=== PATIENT | female | born 1940 | race Caucasian/White ===

== ENCOUNTER → 2016-10-02 | Outpatient (CLI) | payer OTHER, MEDICAID ==
--- NOTE | 2016-10-02 17:18 | DX ---
Bilateral hips, 3 views each side. October 02, 2016. History: Bilateral osteoarthritis of the hips. Findings: There is grade 4 articular cartilage loss within the left hip, with [id number] articulation. Latera l subluxation of the left femoral head is associated with bone resorption of the superior lateral asp ect of the left femoral head. The right hip demonstrates advanced central joint space narrowing, with subchondral cystic change wit hin the inferior medial aspect right femoral head. No pelvic fracture identified. Sacroiliac joints and symphysis pubis appear intact. Impression: 1. Advanced bilateral hip degenerative changes, left greater than right.
--- NOTE | 2016-10-02 17:20 | DX ---
Knee 3 Views Right, Knee 3 Views Left History: Knee pain. Osteoarthritis Comparison exam: None available. Findings: Right knee: Lateral joint space narrowing is associated with genu valgus. Medial compartment and sharp llofemoral compartments appear intact. Left knee: Medial joint space narrowing is associated with genu varus. Lateral compartment and patell ofemoral compartments appear intact. Impression: Bilateral knee osteoarthritis, preferential involvement of the lateral compartment of th e right knee and the medial compartment of the left knee.
== END ==
LOC: FIMAGING 16:20
PROVIDERS: ATTEND Family Medicine Sports Medicine
DX: M17.0 Bilateral primary osteoarthritis of knee (principal); M24.152 Other articular cartilage disorders, left hip; S73.002A Unspecified subluxation of left hip, initial encounter

== ENCOUNTER 2017-03-09 19:07 | Inpatient (IN) | payer OTHER, MEDICAID ==
--- NOTE | 2017-03-09 19:15 | EDPHY ---
H & P HPI/ROS: CHIEF COMPLAINT: Left knee and hip pain HISTORY OF PRESENT ILLNESS: The patient is a 76-year-old female with a history of schizophrenia, hypertension who lives alone. Her home health nurse found her today sitting up against her bed. She states that she fell next to her bed. She complains of pain in her left knee and hip. She denies head neck or back pain. No acute upper extremity injuries. No right leg injuries. No pelvic pain or abdominal pain. No chest pain or trouble breathing. She states that she did not faint but the she tripped. REVIEW OF SYSTEMS: Constitutional: denies: chills, fever, recent illness, recent injury EENTM: denies: blurred vision, double vision, nose congestion Respiratory: denies: cough, shortness of breath Cardiac: denies: chest pain, irregular heart rate, lightheadedness, palpitations Gastrointestinal/Abdominal: denies: abdominal pain, diarrhea, nausea, vomiting, blood streaked stools Genitourinary: denies: dysuria, frequency, hematuria, pain Musculoskeletal: See HPI Skin: denies: lesions, rash, jaundice, bruising Neurological: denies: headache, numbness, paresthesia, tingling, dizziness, weakness Hematologic/Lymphatic: denies: blood clots, easy bleeding, easy bruising Immunologic/allergic: denies: HIV/AIDS, transplant EXAM: GENERAL: Well-appearing, well-nourished and in no acute distress. HEAD: Atraumatic, normocephalic. EYES: Pupils equal round and reactive to light, extraocular movements intact, sclera anicteric, conjunctiva are normal. ENT: TMs normal, nares patent, oropharynx clear without exudates. Moist mucous membranes. NECK: Normal range of motion, supple without lymphadenopathy or JVD. LUNGS: Breath sounds clear to auscultation bilaterally and equal. No wheezes rales or rhonchi. HEART: Regular rate and rhythm without murmurs, rubs or gallops. ABDOMEN: Soft, nontender, normoactive bowel sounds. No guarding, no rebound. No masses appreciated. BACK: No CVA tenderness, no spinal tenderness, step-offs or deformities EXTREMITIES: Left leg bent, pain with extension of knee, mild crepitus just above the knee. No tenderness with palpation of her left hip. Pelvis stable. NEUROLOGICAL: Cranial nerves II through XII grossly intact. Normal speech, normal gait. 5/5 strength, normal movement in all extremities, normal sensation PSYCH: Normal mood, normal affect. SKIN: Warm, dry, normal turgor, no visible rashes or lesions. Source: Patient, EMS Exam Limitations: Clinical condition - Personal History Tetanus Vaccine Date: 2012 - Medical/Surgical History Hx Asthma: No Hx Chronic Respiratory Disease: No Hx Diabetes: No Hx Cardiac Disease: No Hx Renal Disease: No Hx Cirrhosis: No Hx Alcoholism: No Hx HIV/AIDS: No Hx Splenectomy or Spleen Trauma: No Other PMH: PMH: left hip problems (refuses sx), paranoid schizophrenia. PSH: hysterectomy, appy, ? - Family History Significant Family History: No pertinent family hx - Social History Smoking Status: Never smoked Alcohol Use: Sober Drug Use: None Constitutional: Initial Vital Signs Temperature (C) 36.6 C 03/09/17 19:14 Heart Rate 110 H 03/09/17 19:14 Respiratory Rate 14 03/09/17 19:14 Blood Pressure 154/78 H 03/09/17 19:14 O2 Sat (%) 96 03/09/17 19:14 O2 Delivery Mode Room Air Allergies/Adverse Reactions: lithium [Stewart] Allergy (Verified 03/09/17 19:14) Sulfa (Sulfonamide Antibiotics) Allergy (Verified 03/09/17 19:14) Home Medications: Medication Instructions Recorded Albuterol Sulfate [Ventolin Hfa] 1 - 2 puffs IH Q6H PRN 03/09/17 Aspirin [Aspirin 325 mg (*)] 325 mg PO DAILY 03/09/17 Cholecalciferol Vit D3 [Vitamin D3 5,000 units PO DAILY 03/09/17 (*)] Diclofenac Potassium 50 mg PO BID PRN 03/09/17 Docusate Sodium [Colace 100 MG (*)] 100 mg PO BID 03/09/17 Donepezil HCl [Aricept 5 MG (*)] 5 mg PO DAILY 03/09/17 Glycerin 1 each RC DAILY PRN 03/09/17 Hydrocortisone 2.5% 1 faby TP BID PRN 03/09/17 [Hydrocortisone 2.5% cream (*)] Lisinopril [Zestril 10 mg (*)] 10 mg PO DAILY 03/09/17 Multivitamins [Multivitamin (*)] 1 each PO DAILY 03/09/17 Oxybutynin Chloride [Ditropan 5mg 5 mg PO BID 03/09/17 (RX)] Polyethylene Glycol 3350 [Miralax 17 gm PO DAILY PRN 03/09/17 17 gm (*)] Risperidone 2 mg PO DAILY 03/09/17 guaiFENesin [Mucinex 600 MG (*)] 600 mg PO BID PRN 03/09/17 risperiDONE [Risperidone] 3 mg PO DAILY 03/09/17 Medical Decision Making - Diagnostics EKG Interpretation: An EKG obtained and was read and documented in trace view. Please see trace view for full reading and report. Sinus tachycardia, no acute ischemic changes Imaging: Discussed imaging studies w/ inbound call center agent Radiologist ED Course/Re-evaluation: 8:00 p.m. we discussed the x-ray results which are baseline for the patient compared to previous studies. I encouraged her to ambulate. She failed road test and would not even stand up out of bed. I discussed the case with Dr NATALY Harden who will admit. I will obtain CT imaging of her hip to rule out occult fracture. We will consult Dr. Oracio Fallon from Trauma to see if he needs to be involved. 8:05 p.m. I discussed the case with Dr. Oracio Fallon. He does not think that the trauma service needs to be involved. 8:20 p.m. the patient's white blood cell count came back elevated. Dr NATALY Harden is here in the room seeing her. We will add on lactate, blood cultures. Urinalysis pending. Patient has no shortness of breath. 8:50 p.m. . the patient qualifies as severe sepsis. Urinalysis still pending. 2nd lactate ordered, fluids running. Differential Diagnosis: Partial list of the Differential diagnosis considered include but were not limited to; arthritis, hip fracture, knee fracture, schizophrenia , failure to thrive and although unlikely based on the history and physical exam, I also considered dislocation, vascular injury, head injury, back injury. - Data Points Laboratory Results: Laboratory Results 03/09/17 19:41 03/09/17 19:41 Medications Given: Discontinued Medications Sodium Chloride (Ns) 1,800 mls @ 300 mls/hr 30 ml/kg infuse over 6 hr (1800 ml ) IV EDNOW ONE PRN Reason: Protocol Stop: 03/10/17 02:20 Last Admin: 03/09/17 21:04 Dose: 1,800 mls Ceftriaxone Sodium/Dextrose (Rocephin 1 Gm (Premix)) 50 mls @ 100 mls/hr IV EDNOW ONE PRN Reason: Protocol Stop: 03/09/17 21:33 Last Admin: 03/09/17 21:08 Dose: 50 mls Sodium Chloride (Ns) 1,000 mls @ 0 mls/hr IV ONCE ONE PRN Reason: Wide Open Stop: 03/09/17 22:06 Last Admin: 03/09/17 22:05 Dose: 1,000 mls Sodium Chloride (Ns) 1,000 mls @ 3,000 mls/hr IV ONCE ONE Stop: 03/09/17 22:26 Last Admin: 03/09/17 23:02 Dose: Not Given Sodium Chloride (Ns) 1,000 mls @ 3,000 mls/hr IV ONCE ONE Stop: 03/10/17 11:19 Last Admin: 03/10/17 11:21 Dose: 1,000 mls Departure - Departure Disposition: [facility] Acute Clinical Impression: Severe sepsis Hip pain Qualifiers: Laterality: left Qualified Code(s): M25.552 - Pain in left hip Fall Qualifiers: Encounter type: initial encounter Qualified Code(s): W19.XXXA - Unspecified fall, initial encounter Condition: Fair
[2017-03-09 19:50] LABS: % IMMATURE GRANULYOCYTES 0.6 % (0.0-1.1); ABSOLUTE IMMATURE GRANULOCYTES 0.12 10^3/uL (0.00-0.10); ADD DIFF? NO; ADD MORPH? NO; ADD SCAN? NO; ATYPICAL LYMPHOCYTE FLAG 0 (0-99); FRAGMENT RBC FLAG 0 (0-99); HEMATOCRIT 34.1 % (38.0-47.0); HEMOGLOBIN 11.8 g/dL (12.6-16.3); LEFT SHIFT FLG 10 (0-99); LIPEMIA HEMOLYSIS FLAG 90 (0-99); MEAN CELL HEMOGLOBIN 30.6 pg (27.9-34.1); MEAN CELL HEMOGLOBIN CONCENTR. 34.6 g/dL (32.4-36.7); MEAN CELL VOLUME 88.6 fL (81.5-99.8); MEAN PLATELET VOLUME 9.5 fL (8.7-11.7); PLATELET CLUMPS FLAG 0 (0-99); PLATELET COUNT 269 10^3/uL (150-400); RED BLOOD CELL COUNT 3.85 10^6/uL (4.18-5.33); RED CELL DISTRIBUTION WIDTH 12.1 % (11.5-15.2)
[2017-03-09] MEDS ORDERED: ONDANSETRON DISINTEGRATING 4 MG TAB PO PRN (19:59)
[2017-03-09] MEDS ORDERED: ACETAMINOPHEN 325 MG TAB PO PRN (19:59)
[2017-03-09] MEDS ORDERED: ONDANSETRON 4 MG/2 ML VIAL IVP PRN (19:59)
[2017-03-09 20:00] LABS: APTT 28.5 SEC (23.0-38.0); INR 1.06 (0.83-1.16); PROTIME(PATIENT) 13.7 SEC (12.0-15.0)
[2017-03-09] MEDS ORDERED: NS 1,000 ML IV ONE ×3 (20:04→22:07)
[2017-03-09 20:07] LABS: ANION GAP 10 mEq/L (8-16); CALCIUM 9.7 mg/dL (8.5-10.4); CARBON DIOXIDE 20 mEq/l (22-31); CHLORIDE 101 mEq/L (97-110); CREATININE 0.6 mg/dL (0.6-1.0); GLOMERULAR FILTRATION RATE > 60; GLUCOSE 151 mg/dL (70-100); POTASSIUM 3.9 mEq/L (3.5-5.2); SODIUM 131 mEq/L (134-144)
[2017-03-09] MEDS ORDERED: NS 1,800 ML IV ONE (20:21)
[2017-03-09] MEDS ORDERED: POLYETHYLENE GLYCOL 3350 17 GM PKT PO PRN (20:37)
--- NOTE | 2017-03-09 20:52 | CPEKG ---
Heart Rate: 109 RR Interval: 550 P-R Interval: 160 QRSD Interval: 80 QT Interval: 324 QTC Interval: 437 P [place]: 68 QRS [place]: 59 T Wave [place]: 34 EKG Severity - BORDERLINE ECG - EKG Impression: SINUS TACHYCARDIA EKG Impression: BORDERLINE INFERIOR Q WAVES EKG Impression: BORDERLINE T WAVE ABNORMALITIES Electronically Signed By: James Hsieh 09-Mar-2017 20:57:40
[2017-03-09 20:53] LABS: BILIRUBIN,TOTAL 0.9 mg/dL (0.1-1.4)
[2017-03-09 20:57] LABS: COLOR YELLOW; LEUKOCYTE ESTERASE,URINE 2+ (NEGATIVE); NITRITE,URINE NEGATIVE (NEGATIVE)
[2017-03-09 21:01] LABS: BACTERIA 4+ /hpf (NONE SEEN); MUCUS TRACE /lpf (NONE-1+); WBC,URINE 15-25 /hpf (0-3)
--- NOTE | 2017-03-09 21:05 | GHP ---
[f rep st] HISTORY AND PHYSICAL DATE OF ADMISSION: 03/09/2017 CHIEF COMPLAINT: Fall. HISTORY OF PRESENT ILLNESS: This is a 76-year-old female, with a history of severe schizophrenia re quiring inpatient psychiatric hospitalization in December of 2015, who presents from independent living with caregiver support and Meals on Wheels. Caregiver apparently showed up at the home today and t he patient was sitting against her bed reporting that she had a fall. The patient cannot give speci fic details about the circumstances of the fall, but that she is having terrible left-sided hip and knee pain. The patient was unable to stand and ambulate independently, therefore was brought into [facility] emergency department for evaluation. In the ED, she reports that she gets Meals on Wheels and does eat them. Cannot specifically say jhonathan t she makes an effort toward fluid hydration. Denies any chest pain or shortness of breath. Denies cough. Denies recent fevers or chills. Does report that she has been having urinary accidents rec ently. Denies any blood in her stool or urine. Is having terrible pain of her left lower extremity . None on her right, per her report. Denies having any difficulties at home specifically. Denies any dizziness, heart racing or chest pain. PAST MEDICAL HISTORY: 1. Schizophrenia. 2. Hypertension. 3. History of laxative abuse. 4. 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 SOCIAL HISTORY: The patient is currently living independently with care provider support. Denies a lcohol, illicit drugs or tobacco. She has a brother and a [id number] who are support systems for her. CODE STATUS: Full code. REVIEW OF SYSTEMS: A 10-point review of systems is negative with the exception of that reported in the HPI. PHYSICAL EXAMINATION: VITAL SIGNS: Blood pressure is 154/78, heart rate in 130s, respiratory rate is 14, and 96% on room air, temperature is 36.6. GENERAL: This is a disheveled-appearing elderly f emale in mild distress. HEENT: Notable for dry mucous membranes and poor dentition. Eye exam is n egative for any icterus. CARDIAC: The patient is tachycardic but regular. PULMONARY: She is eric r to auscultation bilaterally. GASTROINTESTINAL: Abdomen is soft and nontender. MUSCULOSKELETAL: The patient has marked pain on palpation of her left hip as well as her left knee. No lower extrem ity edema is appreciated. SKIN: No rashes are noted. NEUROLOGIC: She is alert and oriented x3. She is distractible. PSYCHIATRIC: She is cooperative. LABORATORY DATA: White count 19.7, baselines appear normal between 7 and 9, hematocrit 34.1, below her recent baselines, platelet count 269. Sodium 131, creatinine 0.6, blood glucose 151. Hip and k nee x-rays, which I personally reviewed and interpreted, on the left do not show acute fractures. ASSESSMENT AND PLAN: This is a 76-year-old female presenting status post fall. 1. Fall. The mechanics are unclear. Hip and knee films are negative for acute fractures; however, the patient does have marked pain. I agree with CT imaging to rule out hairline fractures. We william l need PT/OT for safety evaluations for disposition. Can treat with pain medications p.r.n. 2. Tachycardia. The patient appears to be regular on my auscultation. I will order an EKG. Revie wing her previous vital signs, this is very abnormal for her. I suspect it is pain and volume relat ed. We will resuscitate with normal saline, check an EKG and treat her pain, following her heart ra te thereafter. 3. Acute leukocytosis. The patient has a white count of 19. Source is unclear at this time; althace leon, with a history of urinary accidents, suspect this may be secondary to a UTI. We will order uri nalysis and urine culture now. 4. Sepsis. The patient has leukocytosis and tachycardia. Presumed source likely urinary. Again, we will check urinalysis and urine culture, and empirically treat with ceftriaxone IV. Looking at o ld cultures, patient has grown most recently Proteus that appears to be multi-drug resistant. We wi ll await urinalysis before deciding upon empiric antibiotics as ceftriaxone may not be appropriate i f we are seeing this Proteus again. 5. Hyponatremia. I suspect secondary to hypovolemia. The patient has a history of laxative abuse. We will fluid resuscitate and recheck in the morning. 6. Schizophrenia. Can continue her home medications once reconciled. 7. Prophylaxis with Lovenox. 8. Diet. Regular. 9. Disposition. I expect greater than 2 midnights as the patient is presenting septic, status post fall, will need therapy evaluations and aggressive medical care for a sepsis diagnosis on admission . I discussed the case with the emergency room physician. The patient will be triaged to the medic al-surgical floor for IV antibiotics and care. /[id number]/MODL
[2017-03-09 22:48] LABS: LACGHOST ORDER
[2017-03-09] MEDS: ERTAPENEM 1 GM in NS 100 ML IV SCH (23:02)
[2017-03-09] MEDS: DOCUSATE SODIUM 100 MG CAP PO SCH (23:31)
[2017-03-10] MEDS: OXYBUTYNIN CHLORIDE 5 MG TAB PO SCH ×3 (01:18→19:05)
[2017-03-10 06:14] LABS: ANION GAP 7 mEq/L (8-16); CALCIUM 7.9 mg/dL (8.5-10.4); CARBON DIOXIDE 20 mEq/l (22-31); CHLORIDE 112 mEq/L (97-110); CREATININE 0.5 mg/dL (0.6-1.0); GLOMERULAR FILTRATION RATE > 60; GLUCOSE 92 mg/dL (70-100); POTASSIUM 3.5 mEq/L (3.5-5.2); SODIUM 139 mEq/L (134-144)
[2017-03-10] MEDS: ASPIRIN 325 MG TAB PO SCH (08:10)
[2017-03-10] MEDS: CHOLECALCIFEROL VIT D3 1,000 UNITS TAB PO SCH (08:10)
[2017-03-10] MEDS: DONEPEZIL HCL 5 MG TAB PO SCH (08:10)
[2017-03-10] MEDS: DOCUSATE SODIUM 100 MG CAP PO SCH ×2 (08:10→19:05)
[2017-03-10] MEDS: ENOXAPARIN 40 MG/0.4 ML SYR SC SCH (08:10)
[2017-03-10] MEDS: risperiDONE 1 MG TAB PO SCH (08:11)
[2017-03-10] MEDS: risperiDONE 2 MG TAB PO SCH (08:13)
[2017-03-10] MEDS ORDERED: RISPERIDONE 3 MG PO SCH (09:00)
[2017-03-10 09:25] LABS: % IMMATURE GRANULYOCYTES 0.7 % (0.0-1.1); ABSOLUTE IMMATURE GRANULOCYTES 0.06 10^3/uL (0.00-0.10); ADD DIFF? NO; ADD MORPH? NO; ADD SCAN? NO; ATYPICAL LYMPHOCYTE FLAG 0 (0-99); FRAGMENT RBC FLAG 0 (0-99); HEMATOCRIT 26.3 % (38.0-47.0); LEFT SHIFT FLG 0 (0-99); LIPEMIA HEMOLYSIS FLAG 90 (0-99); MEAN CELL HEMOGLOBIN 30.5 pg (27.9-34.1); MEAN CELL HEMOGLOBIN CONCENTR. 34.2 g/dL (32.4-36.7); MEAN CELL VOLUME 89.2 fL (81.5-99.8); MEAN PLATELET VOLUME 9.6 fL (8.7-11.7); PLATELET CLUMPS FLAG 0 (0-99); PLATELET COUNT 189 10^3/uL (150-400); RED BLOOD CELL COUNT 2.95 10^6/uL (4.18-5.33); RED CELL DISTRIBUTION WIDTH 12.5 % (11.5-15.2)
[2017-03-10] MEDS ORDERED: NS 1,000 ML IV ONE (11:00)
--- NOTE | 2017-03-10 14:11 | HOSPPROG ---
Hospitalist Progress Note Assessment/Plan: # sepsis- tachycardia and leukocytosis at presentation presumed secondary to urinary source - blood and urine cultures NGTD oxygen saturations 94% on room air - continue empiric antibiotics - status post aggressive fluid resuscitation continue maintenance of p.o. is inadequate # suspected UTI- abnormal urinalysis urine culture pending- history of multi- drug resistant Proteus - continue empiric ertapenem until cultures available # severe schizophrenia- we do believe this is impacting her ability for self- care at home - will need to re-engage ethics and Psychiatry for disposition planning - continue home meds # severe left lower extremity pain- mechanics of fall if any are unknown - hip xray (personally reviewed and interpreted) advanced hip degenerative changes no acute fractures - pt refusing pain medications # acute hyponatremia thought secondary to hypovolemia- resolved overnight with fluid resuscitation- 139 - continue IVF if no p.o. intake # acute leukocytosis white count 19 improved -> 8 this morning with empiric antibiotics and supportive care # prophylaxis Lovenox # diet regular # disposition greater than 2 midnights patient will be a complicated disposition secondary to safety as it pertains to her psychiatric illness I have discussed the case with the ICU physician will complete fluid resuscitation and continue empiric antibiotics Subjective: still with left hip and knee pain Objective: Vital Signs Temp Pulse Resp BP Pulse Ox 37.5 C 113 H 17 170/67 H 93 03/10/17 07:29 03/10/17 07:29 03/10/17 07:29 03/10/17 07:29 03/10/17 07:29 Laboratory Results 03/10/17 09:15 03/10/17 05:10 03/09/17 03/10/17 03/11/17 05:59 05:59 05:59 Intake Total 3100 1000 Output Total 1700 Balance 1400 1000 PT 13.7 SEC (12.0-15.0) 03/09/17 19:41 INR 1.06 (0.83-1.16) 03/09/17 19:41 - Physical Exam Constitutional: appears nourished, chronically ill appearing Eyes: anicteric sclera Ears, Nose, Mouth, Throat: moist mucous membranes Cardiovascular: regular rate and rhythym Respiratory: no respiratory distress, no rales or rhonchi Gastrointestinal: normoactive bowel sounds, soft, non-tender abdomen Genitourinary: no bladder fullness Skin: warm, normal color Musculoskeletal: No asymmetric calves Neurologic: AAOx3 Psychiatric: interacting appropriately, not anxious Lymph, Heme, Immunologic: no cervical LAD ICD10 Worksheet Patient Problems: Problems Problem Status Onset Fall Acute Hip pain Acute Severe sepsis Acute Acute psychosis Acute Diarrhea Acute
[2017-03-10] MEDS: HYDROCODONE/APAP 5/325 TAB PO PRN (19:04)
[2017-03-10] MEDS: ERTAPENEM 1 GM in NS 100 ML IV SCH (19:05)
[2017-03-11] MEDS: HYDROCODONE/APAP 5/325 TAB PO PRN ×3 (02:49→21:11)
[2017-03-11 03:17] LABS: HEMATOCRIT 24.3 % (38.0-47.0); HEMOGLOBIN 8.3 g/dL (12.6-16.3); MEAN CELL HEMOGLOBIN 30.9 pg (27.9-34.1); MEAN CELL HEMOGLOBIN CONCENTR. 34.2 g/dL (32.4-36.7); MEAN CELL VOLUME 90.3 fL (81.5-99.8); RED BLOOD CELL COUNT 2.69 10^6/uL (4.18-5.33); RED CELL DISTRIBUTION WIDTH 12.5 % (11.5-15.2)
[2017-03-11 03:43] LABS: ANION GAP 6 mEq/L (8-16); CALCIUM 8.8 mg/dL (8.5-10.4); CARBON DIOXIDE 23 mEq/l (22-31); CHLORIDE 110 mEq/L (97-110); CREATININE 0.6 mg/dL (0.6-1.0); GLOMERULAR FILTRATION RATE > 60; GLUCOSE 86 mg/dL (70-100); POTASSIUM 3.7 mEq/L (3.5-5.2); SODIUM 139 mEq/L (134-144)
[2017-03-11] MEDS: LISINOPRIL 10 MG TAB PO SCH (07:53)
[2017-03-11] MEDS: ENOXAPARIN 40 MG/0.4 ML SYR SC SCH (07:53)
[2017-03-11] MEDS: ASPIRIN 325 MG TAB PO SCH (07:55)
[2017-03-11] MEDS: risperiDONE 2 MG TAB PO SCH (07:55)
[2017-03-11] MEDS: DONEPEZIL HCL 5 MG TAB PO SCH (07:55)
[2017-03-11] MEDS: CHOLECALCIFEROL VIT D3 1,000 UNITS TAB PO SCH (07:55)
[2017-03-11] MEDS: OXYBUTYNIN CHLORIDE 5 MG TAB PO SCH ×2 (07:55→21:11)
[2017-03-11] MEDS: risperiDONE 1 MG TAB PO SCH (07:56)
[2017-03-11] MEDS: DOCUSATE SODIUM 100 MG CAP PO SCH ×2 (07:56→21:11)
--- NOTE | 2017-03-11 13:20 | WOCRNPDOC ---
WOCRN Advanced Assessment Note - Skin Integrity Problem, Advanced Assess Left Lower Leg Blister Dressing Type: Open to Air Exudate Amount: None Roxana Wound Tissue: Erythema (scattered erythematic flat rash), Contused, Painful /Tender Wound Bed Constitution: Intact Serous Filled Blister (x4) Site Measurement - Head-to-Toe Length X Width X Depth (cm): [id number] blister, and a few others grouped nearby approx 3x1 and 1x1 are the largest. Skin Integrity Problem Comment: Patient unable to move leg due to severe pain and swelling. atomic fuel assembler unable to assess fully as the patient's leg was resting on the bed and the lateral portion of the lower leg could not be seen. Discussed the need for repositioning with patient and the consequences including the possible development of a pressure injury/bedsore. Patient verbalized understanding but appeard to be in too much agony to move at all. Xray of lower leg pending. Suggested placing leg in a boot in the interim to help stablize it but patient declined. Recommend covering area with mepilex transfer sheet to protect blisters.
[2017-03-11] MEDS ORDERED: HYDROmorphONE/DILAUDID 1 MG/ML SYR IVP PRN (13:33)
--- NOTE | 2017-03-11 13:49 | HOSPPROG ---
Hospitalist Progress Note Assessment/Plan: # Acute tib/fib fracture - pt with persistent leg pain now localizing below the knee - new bruising and blistering this am mechanics of fall if any are unknown - Tib/fib xray (personally reviewed and interpreted) displaced fracture of tibia and fibular fx - will consult ortho - encouraging IV pain meds - make NPO until ortho has evaluated # sepsis- (tachycardia and leukocytosis at presentation) presumed secondary to urinary source - blood and urine cultures NGTD oxygen saturations 94% on room air - continue empiric antibiotics - status post aggressive fluid resuscitation continue maintenance of p.o. is inadequate # suspected UTI- abnormal urinalysis urine culture pending- history of multi- drug resistant Proteus - continue empiric ertapenem until cultures available # severe schizophrenia- we do believe this is impacting her ability for self- care at home - consulting Psychiatry - continue home meds # acute hyponatremia thought secondary to hypovolemia- resolved overnight with fluid resuscitation- remains 139 - continue IVF while NPO # acute leukocytosis white count 19 improved -> 7 this morning with empiric antibiotics and supportive care # prophylaxis Lovenox # diet regular # disposition greater than 2 midnights patient will be a complicated disposition secondary to safety as it pertains to her psychiatric illness I have discussed the case with the RN - films confirming a tib/fib fracture - will consult ortho Subjective: pain in left leg Objective: Vital Signs Temp Pulse Resp BP Pulse Ox 36.9 C 84 16 155/54 H 98 03/11/17 08:00 03/11/17 08:00 03/11/17 08:00 03/11/17 08:00 03/11/17 08:00 Laboratory Results 03/11/17 03:00 03/11/17 03:00 03/10/17 03/11/17 03/12/17 05:59 05:59 05:59 Intake Total 3100 3128 Output Total 1700 4100 1800 Balance 1400 -972 -1800 PT 13.7 SEC (12.0-15.0) 03/09/17 19:41 INR 1.06 (0.83-1.16) 03/09/17 19:41 - Physical Exam Constitutional: chronically ill appearing Eyes: anicteric sclera Ears, Nose, Mouth, Throat: moist mucous membranes Cardiovascular: regular rate and rhythym, tachycardia Respiratory: no respiratory distress, no rales or rhonchi Gastrointestinal: normoactive bowel sounds, soft, non-tender abdomen Genitourinary: no bladder fullness, morocho in urethra Skin: warm, other (bruising at mid michaud of left lower extremity with new blistering) Musculoskeletal: asymmetric calves Neurologic: AAOx3 Psychiatric: poor insight ICD10 Worksheet Patient Problems: Problems Problem Status Onset Fall Acute Hip pain Acute Severe sepsis Acute Acute psychosis Acute Diarrhea Acute
--- NOTE | 2017-03-11 14:36 | SOAPPROG ---
PRADEEP Progress Note Assessment/Plan: Assessment: left tib fib fracture Plan: i have reviewed xrays. i would recommend IM nail of tib/fib. d/w florecita toro and will plan on IM nail tomorrow. I will discuss with patient. She has advanced arthritis with end stage remodeling to her left hip which is chronic. I would not recommend any intervention for her hip. 03/11/17 14:34 Objective: Vital Signs Temp Pulse Resp BP Pulse Ox 36.9 C 84 16 155/54 H 98 03/11/17 08:00 03/11/17 08:00 03/11/17 08:00 03/11/17 08:00 03/11/17 08:00 Laboratory Results 03/11/17 03:00 03/11/17 03:00 03/10/17 03/11/17 03/12/17 05:59 05:59 05:59 Intake Total 3100 3128 Output Total 1700 4100 1800 Balance 1400 -972 -1800 PT 13.7 SEC (12.0-15.0) 03/09/17 19:41 INR 1.06 (0.83-1.16) 03/09/17 19:41 ICD10 Worksheet Patient Problems: Problems Problem Status Onset Fall Acute Hip pain Acute Severe sepsis Acute Acute psychosis Acute Diarrhea Acute
--- NOTE | 2017-03-11 18:36 | BCON ---
[f rep st] BEHAVIORAL HEALTH CONSULTATION PATIENT IDENTIFICATION: The patient presents as a 76-year-old single white female, who lives in her own apartment and functions stably in independent living with outreach caregiver support and Meals on Wheels. The patient has a remote diagnosis of Schizophrenic Disorder and is followed on maintenance medication including Risperdal 5 mg daily. Her psychiatric prescriber apparently makes regularly scheduled outreach home visits. She was admitted via the [facility] Emergency Room to the ICU following a mechanical fall and identification of sepsis and suspected UTI in the emergency room. CONSULTATIVE REQUEST: Psychiatry was asked to assess the patient to stage her mental status and assess dispositional needs. HISTORY OF PRESENT ILLNESS: The patient has a remote diagnosis of Schizophrenic Disorder. Her chronic symptom and treatment history details are unclear from the database. The patient does acknowledge she has had multiple hospitalizations in the past, and is followed currently as a psychiatric outpatient. She does remember her last inpatient hospitalization occurred last year. Database states this was in December 2015. The patient's verbal history is somewhat imprecise, but she does report being hospitalized briefly at [facility] in [place] before being transferred to [place] and the [facility] inpatient psychiatric service where she stayed for a period of 5 days. Her intake suggests that she was discharged but hospitalized again x2 for 5- day periods before discharging home and remaining home in stable condition. She states she has not been hospitalized since that time, does comply with her maintenance Risperdal regimen and outreach appointments with her psychiatric prescriber, who does come to her home. She states she was in her usual state of wellness until suffering a mechanical fall on the day of or day before, being found by her home health nurse on the floor of her apartment. She was brought by EMS to the emergency room. On direct exam she complained of left lower extremity, left knee, and hip pain. Emergency room workup included a left hip x-ray, left knee x-ray, and CT of her abdomen and pelvis. All imaging studies were negative for any acute problems. Patient did have evidence of advanced left hip osteoarthritis. Further lab screens revealed diminished hemoglobin and hematocrit at 8.3 and 24.3, diminished platelets at 166, WBC AT 19,hyponatremia at 131, and a decreased anion gap of 6. A urinalysis revealed pyuria. Urine culture and blood cultures x2 were obtained; currently show no infection. Patient was sent on for admission to the ICU for presumed sepsis, probable urinary tract infection, hyponatremia, and persistent acute pain complaints. HOSPITAL COURSE: Since admission to the ICU, the patient's elevated white count has corrected from 19 to 7 on antibiotic coverage. The persistent pain eventuated in an x-ray of her tibia and fibula which revealed an acute fracture. Patient was seen in consultation by Orthopedics today and planned tomorrow for fracture repair by nailing intervention. The patient also had developed a left lower extremity blister, which was seen today by Wound Care. Patient was unable to move secondary to pain and swelling. Patient understood the risk of pressure injury, or bedsore. It was suggested patient's leg be placed in a protective boot but the patient declined. She did recommend covering the blister area with Mepilex transfer sheet. The patient has complied with medications and care, including continuing on her regimen of Risperdal 5 mg daily. MENTAL STATUS EXAMINATION: On direct exam, the patient presents as an elderly white female, who is alert and oriented x4. Patient is cooperative and conversant, interacting in the session. Her thought process is concrete, psychosis free, reality focused. Patient accurately explains the reason for being in the hospital and understands the corrective surgery surgical procedure plan for the a.m. tomorrow. She also conveyed her psychiatric history in an articulate manner as referenced above. She does understand the Risperdal is a necessary medication for her to maintain mindful stability. She understands her need for step-down from the hospital for A rehabilitation stay in a [place] [facility] [place] prior to returning home. She understands this in terms of needing to regain functional mobility, strength, and capacity to manage independently enough to return to her apartment, and the supportive care services she had been receiving prior to the fall. IMPRESSION: Patient presents as a 76-year-old white female with remote diagnosis of schizophrenic disorder. Her schizophrenia appears to be in a compensated state with patient presenting with no evidence for psychosis and full reality testing capacity. She also understands the nature of the problems in the hospital and the corrective interventions. She also understands the need for a step-down [place] [facility] [place] rehabilitation stay to advance her recovery to a level allowing her to return home. RECOMMENDATIONS: Would simply continue the patient on her maintenance Risperdal at 5 mg daily and continue to provide verbal support, clarification, and direction for her in completing the acute hospital stay through her surgical correction and sufficient recovery to step-down to a [place] [facility] [place] rehabilitation program for sufficient functional recovery to then allow her to return home to her apartment. She clearly values the apartment setting as a base for her to continue her community life. Thank you for the interesting consultation. Any questions, please call me at [phone]. /[id number]/MODL MTDD
[2017-03-11] MEDS: ERTAPENEM 1 GM in NS 100 ML IV SCH (21:13)
--- NOTE | 2017-03-12 04:06 | GCON ---
[f rep st] CONSULTATION INPATIENT CONSULTATION CHIEF COMPLAINT: Fall and leg pain. HISTORY OF PRESENT ILLNESS: Patient is a 76-year-old woman with severe schizophrenia who presented to the emergency department after being found next to the edge of her bed and reporting that she had a fall. She was unable to ambulate. Was having terrible left-sided hip and knee pain. She presen abel to the emergency department. Evaluation at that time with x-rays of her hip revealed severe art hritis which is chronic, as well as right knee arthritis with no acute fracture identified. She was also diagnosed with urosepsis and admitted to the ICU for further evaluation. She has had persiste nt pain across her left lower extremity, inability to ambulate. X-rays of her tibia and fibula were obtained demonstrating a mid shaft 50% displaced and mildly angulated tibia and fibular fracture. She has severe osteoporosis as well. Medically she has resolved her urosepsis and normalized her la boratory values. PAST MEDICAL HISTORY: Consistent with schizophrenia, hypertension, and hyponatremia. PAST SURGICAL HISTORY: See chart. MEDICATIONS: See chart. REVIEW OF SYSTEMS: Noncontributory. She denies everything currently. She denies lower extremity p ain. PHYSICAL EXAMINATION: Objectively this is a healthy elderly woman who is eating and pleasant. Focu sed examination of her left lower extremity reveals no splint. She has large swelling across her lo wer extremity diffusely. Dopplerable pulses to her dorsalis pedis. There are fracture blisters to the mid tibia with ecchymosis surrounding this area. She denies any focal calf pain from the ankle to the knee. There is no focal knee tenderness. She has mild discomfort only with flexion through the fracture site in the mid tibia. IMAGING: X-rays demonstrate a mid shaft tib-fib fracture with 50% displacement and mild angulation. There is diffuse severe osteoporosis by x-ray examination. IMPRESSION: Left tib-fib fracture. TREATMENT PLAN: For stability and mobilization I recommended surgical stabilization with intramedul kirill implant. I have outlined the surgical procedure at length. I am unclear at her comprehension level but she voices her consent to proceed. We will proceed with operative intervention tomorrow e bo. /[id number]/MODL
[2017-03-12 05:47] LABS: HEMATOCRIT 24.7 % (38.0-47.0); HEMOGLOBIN 8.2 g/dL (12.6-16.3); MEAN CELL HEMOGLOBIN 30.3 pg (27.9-34.1); MEAN CELL HEMOGLOBIN CONCENTR. 33.2 g/dL (32.4-36.7); MEAN CELL VOLUME 91.1 fL (81.5-99.8); RED BLOOD CELL COUNT 2.71 10^6/uL (4.18-5.33); RED CELL DISTRIBUTION WIDTH 12.3 % (11.5-15.2)
[2017-03-12] MEDS: risperiDONE 1 MG TAB PO SCH (09:53)
[2017-03-12] MEDS: DONEPEZIL HCL 5 MG TAB PO SCH (09:53)
[2017-03-12] MEDS: CHOLECALCIFEROL VIT D3 1,000 UNITS TAB PO SCH (09:53)
[2017-03-12] MEDS: ASPIRIN 325 MG TAB PO SCH (09:53)
[2017-03-12] MEDS: LISINOPRIL 10 MG TAB PO SCH (09:54)
[2017-03-12] MEDS: DOCUSATE SODIUM 100 MG CAP PO SCH ×2 (09:54→22:31)
[2017-03-12] MEDS: OXYBUTYNIN CHLORIDE 5 MG TAB PO SCH ×3 (09:54→23:43)
[2017-03-12] MEDS: risperiDONE 2 MG TAB PO SCH (09:54)
--- NOTE | 2017-03-12 14:02 | HOSPPROG ---
Hospitalist Progress Note Assessment/Plan: # Acute tib/fib fracture - pt with persistent leg pain now localizing below the knee - new bruising and blistering this am mechanics of fall if any are unknown - Tib/fib xray (personally reviewed and interpreted) displaced fracture of tibia and fibular fx - orthopedics taking for IM nailing today - encouraging IV pain meds - NPO for OR # sepsis- (tachycardia and leukocytosis at presentation) resolved - blood and urine cultures NGTD oxygen saturations 94% on room air - dc empiric antibiotics # suspected UTI- abnormal urinalysis urine culture pending- history of multi- drug resistant Proteus - completed 4 day course of Abx - cultures negative with stop as have treated uncomplicated cystitis # severe schizophrenia- we do believe this is impacting her ability for self- care at home - thank you to Psychiatry for medication and discharge recommendations - continue home risperidone at current dosing # acute hyponatremia thought secondary to hypovolemia- resolved with fluid resuscitation- remains 139 - continue IVF while NPO # acute leukocytosis white count 19 improved -> 7 with empiric antibiotics and supportive care # prophylaxis Lovenox # diet regular # disposition greater than 2 midnights patient will be a complicated disposition secondary to safety as it pertains to her psychiatric illness I have discussed the case with the RN - encouraging pain meds prn patient to OR today Subjective: nervous for OR Objective: Vital Signs Temp Pulse Resp BP Pulse Ox 37.0 C 74 16 143/49 H 100 03/12/17 08:00 03/12/17 08:00 03/12/17 08:00 03/12/17 08:00 03/12/17 08:00 Microbiology 03/10/17 09:15 Urine Culture - Final Urine,Catheterized Laboratory Results 03/12/17 05:37 03/11/17 03:00 03/11/17 03/12/17 03/13/17 05:59 05:59 05:59 Intake Total 3128 Output Total 4100 2675 Balance -972 -2675 PT 13.7 SEC (12.0-15.0) 03/09/17 19:41 INR 1.06 (0.83-1.16) 03/09/17 19:41 - Physical Exam Constitutional: chronically ill appearing Eyes: anicteric sclera Ears, Nose, Mouth, Throat: moist mucous membranes Cardiovascular: regular rate and rhythym Respiratory: no respiratory distress, no rales or rhonchi Gastrointestinal: normoactive bowel sounds Genitourinary: no bladder fullness Skin: other (bruise of left LE extending with persistent blistering of skin ) Musculoskeletal: asymmetric calves Neurologic: AAOx3 Psychiatric: No agitated Lymph, Heme, Immunologic: no cervical LAD ICD10 Worksheet Patient Problems: Problems Problem Status Onset Fall Acute Hip pain Acute Severe sepsis Acute Acute psychosis Acute Diarrhea Acute
[2017-03-12] MEDS ORDERED: LR 1,000 ML IV ONE (15:16)
[2017-03-12] MEDS ORDERED: ceFAZolin 2 GM/DEXTROSE 100 ML IV ONE (16:00)
[2017-03-12] MEDS ORDERED: MIDAZOLAM 2 MG/2 ML VIAL IVP ONE (16:03)
[2017-03-12] MEDS ORDERED: MIDAZOLAM 2 MG/2 ML VIAL ONE (16:03)
--- NOTE | 2017-03-12 16:03 | PDANEPAE ---
ANE History of Present Illness left tibial nail ANE Past Medical History - Cardiovascular History Hx Hypertension: No Hx Arrhythmias: No Hx Chest Pain: Yes Hx Coronary Artery / Peripheral Vascular Disease: No Hx CHF / Valvular Disease: No Hx Palpitations: No Cardiovascular History Comment: probable non cardogenic chest pain - Pulmonary History Hx COPD: No Hx Asthma/Reactive Airway Disease: No Hx Recent Upper Respiratory Infection: No Hx Oxygen in Use at Home: No Hx Sleep Apnea: No Sleep Apnea Screening Result - Last Documented: Negative - Endocrine History Hx Diabetes: No - Neurological & Psychiatric Hx Hx Neurological and Psychiatric Disorders: Yes Neurological / Psychiatric History Comment: severe schizophrenia - Chronic Pain History Chronic Pain: Yes ANE Review of Systems Review of systems is: negative - Exercise capacity Exercise capacity: >=4 METS - Systems Constitutional: Reports: no symptoms EENMT: Reports: no symptoms Cardiac: Reports: no symptoms Muscolosketal: Reports: muscle pain Neurological: Reports: no symptoms ANE Patient History - Allergies Allergies/Adverse Reactions: lithium [Tiburones] Allergy (Verified 03/09/17 19:14) Sulfa (Sulfonamide Antibiotics) Allergy (Verified 03/09/17 19:14) - Home Medications Home Medications: Albuterol Sulfate [Ventolin Hfa] 1 - 2 puffs IH Q6H PRN 03/09/17 [Last Taken Unknown] Aspirin [Aspirin 325 mg (*)] 325 mg PO DAILY 03/09/17 [Last Taken Unknown] Cholecalciferol Vit D3 [Vitamin D3 (*)] 5,000 units PO DAILY 03/09/17 [Last Taken Unknown] Diclofenac Potassium 50 mg PO BID PRN 03/09/17 [Last Taken Unknown] Docusate Sodium [Colace 100 MG (*)] 100 mg PO BID 03/09/17 [Last Taken Unknown] Donepezil HCl [Aricept 5 MG (*)] 5 mg PO DAILY 03/09/17 [Last Taken Unknown] Glycerin 1 each RC DAILY PRN 03/09/17 [Last Taken Unknown] Hydrocortisone 2.5% [Hydrocortisone 2.5% cream (*)] 1 faby TP BID PRN 03/09/17 [ Last Taken Unknown] Lisinopril [Zestril 10 mg (*)] 10 mg PO DAILY 03/09/17 [Last Taken Unknown] Multivitamins [Multivitamin (*)] 1 each PO DAILY 03/09/17 [Last Taken Unknown] Oxybutynin Chloride [Ditropan 5mg (RX)] 5 mg PO BID 03/09/17 [Last Taken Unknown ] Polyethylene Glycol 3350 [Miralax 17 gm (*)] 17 gm PO DAILY PRN 03/09/17 [Last Taken Unknown] Risperidone 2 mg PO DAILY 03/09/17 [Last Taken Unknown] guaiFENesin [Mucinex 600 MG (*)] 600 mg PO BID PRN 03/09/17 [Last Taken Unknown] risperiDONE [Risperidone] 3 mg PO DAILY 03/09/17 [Last Taken Unknown] - NPO status NPO Since - Liquids (Date): 03/12/17 NPO Since - Liquids (Time): 07:00 NPO Since - Solids (Date): 03/12/17 NPO Since - Solids (Time): 00:01 - Anes Hx Anes Hx: no prior problems - Smoking Hx Smoking Status: Never smoked - Alcohol Use Alcohol Use: Sober - Family Anes Hx Family Anes Hx: none ANE Labs/Vital Signs - Labs Result Diagrams: 03/12/17 05:37 03/11/17 03:00 - Vital Signs Blood Pressure: 157/78 Heart Rate: 120 Respiratory Rate: 16 O2 Sat (%): 95 Height: 170.18 cm Weight: 66.8 kg ANE Physical Exam - Airway Mallampati Score: Class 3 Mouth exam: poor dentition - Pulmonary Pulmonary: no respiratory distress - Cardiovascular Cardiovascular: regular rate and rhythym - ASA Status ASA Status: III ANE Anesthesia Plan Anesthesia Plan: GA w LMA
[2017-03-12] MEDS ORDERED: LIDOCAINE 2% 5 ML SDV ONE (16:09)
[2017-03-12] MEDS ORDERED: fentaNYL 100 MCG/2 ML INJ ONE ×3 (16:09→18:03)
[2017-03-12] MEDS ORDERED: PROPOFOL 200 MG/20 ML VIAL ONE (16:09)
[2017-03-12] MEDS ORDERED: DEXAMETHASONE 4 MG/ML VIAL ONE (16:26)
[2017-03-12] MEDS ORDERED: KETOROLAC 30 MG/1 ML SDV ONE (17:40)
--- NOTE | 2017-03-12 17:43 | POSTANESTH ---
Post Anesthetic Evaluation Cardiovascular Status: Normal, Stable Respiratory Status: Normal, Stable Level of Consciousness/Mental Status: Mildly Sleepy, Arousable Pain Control: Adequate, Prn Tx Ordered Nausea/Vomiting Control: Adequate, Prn Tx Ordered Complications Possibly Related to Anesthesia: None Noted
[2017-03-12] MEDS ORDERED: HYDROmorphONE/DILAUDID 1 MG/ML SYR ONE (18:03)
[2017-03-12] MEDS: fentaNYL 100 MCG/2 ML INJ IVP PRN ×4 (18:05→18:40)
[2017-03-12] MEDS ORDERED: HYDROmorphONE/DILAUDID 1 MG/ML SYR IVP PRN (20:05)
[2017-03-12] MEDS: ceFAZolin 2 GM/DEXTROSE 100 ML IV SCH (23:43)
[2017-03-12] MEDS: HYDROCODONE/APAP 5/325 TAB PO PRN (23:52)
[2017-03-13 04:54] LABS: ANION GAP 7 mEq/L (8-16); CALCIUM 8.4 mg/dL (8.5-10.4); CARBON DIOXIDE 25 mEq/l (22-31); CHLORIDE 104 mEq/L (97-110); CREATININE 0.6 mg/dL (0.6-1.0); GLOMERULAR FILTRATION RATE > 60; GLUCOSE 103 mg/dL (70-100); POTASSIUM 3.7 mEq/L (3.5-5.2); SODIUM 136 mEq/L (134-144)
--- NOTE | 2017-03-13 07:21 | PDIAF ---
- Diagnosis Diagnosis: left tibia fx, schizophrenia Code Status: Full Code - Medication Management Discharge Medications: Medications to Continue on Transfer Albuterol Sulfate [Ventolin Hfa] 1 - 2 puffs IH Q6H PRN 03/09/17 [Last Taken Unknown] Aspirin [Aspirin 325 mg (*)] 325 mg PO DAILY 03/09/17 [Last Taken Unknown] Cholecalciferol Vit D3 [Vitamin D3 (*)] 5,000 units PO DAILY 03/09/17 [Last Taken Unknown] Diclofenac Potassium 50 mg PO BID PRN 03/09/17 [Last Taken Unknown] Docusate Sodium [Colace 100 MG (*)] 100 mg PO BID 03/09/17 [Last Taken Unknown] Donepezil HCl [Aricept 5 MG (*)] 5 mg PO DAILY 03/09/17 [Last Taken Unknown] Glycerin 1 each RC DAILY PRN 03/09/17 [Last Taken Unknown] Hydrocortisone 2.5% [Hydrocortisone 2.5% cream (*)] 1 faby TP BID PRN 03/09/17 [ Last Taken Unknown] Lisinopril [Zestril 10 mg (*)] 10 mg PO DAILY 03/09/17 [Last Taken Unknown] Multivitamins [Multivitamin (*)] 1 each PO DAILY 03/09/17 [Last Taken Unknown] Oxybutynin Chloride [Ditropan 5mg (RX)] 5 mg PO BID 03/09/17 [Last Taken Unknown ] Polyethylene Glycol 3350 [Miralax 17 gm (*)] 17 gm PO DAILY PRN 03/09/17 [Last Taken Unknown] Risperidone 2 mg PO DAILY 03/09/17 [Last Taken Unknown] guaiFENesin [Mucinex 600 MG (*)] 600 mg PO BID PRN 03/09/17 [Last Taken Unknown] risperiDONE [Risperidone] 3 mg PO DAILY 03/09/17 [Last Taken Unknown] Discharge Medications: Refer to the Discharge Home Medication list for PRN reason. - Orders Services needed: Physical Therapy Activity/Weight Bearing Restrictions: daily dressing changes to left lower extremity. elevate at rest. TDWB ONLY left lower ext. rom to ankle, knee as tolerated. f/u at two weeks [facility]. seek attn for increasing pain, drainage , s/s infection - Follow Up Care Current Providers and Referrals: Patient,NotPresent [Unknown] - As per Instructions
[2017-03-13] MEDS: HYDROCODONE/APAP 5/325 TAB PO PRN ×3 (08:20→21:23)
[2017-03-13] MEDS: DONEPEZIL HCL 5 MG TAB PO SCH (08:20)
[2017-03-13] MEDS: ASPIRIN 325 MG TAB PO SCH (08:20)
[2017-03-13] MEDS: DOCUSATE SODIUM 100 MG CAP PO SCH ×2 (08:20→21:23)
[2017-03-13] MEDS: ceFAZolin 2 GM/DEXTROSE 100 ML IV SCH ×2 (08:20→17:28)
[2017-03-13] MEDS: LISINOPRIL 10 MG TAB PO SCH (08:20)
[2017-03-13] MEDS: CHOLECALCIFEROL VIT D3 1,000 UNITS TAB PO SCH (08:21)
[2017-03-13] MEDS: risperiDONE 2 MG TAB PO SCH (09:35)
[2017-03-13] MEDS: OXYBUTYNIN CHLORIDE 5 MG TAB PO SCH ×2 (09:35→21:23)
[2017-03-13] MEDS: risperiDONE 1 MG TAB PO SCH (09:35)
[2017-03-13] MEDS: ENOXAPARIN 40 MG/0.4 ML SYR SC SCH (09:36)
--- NOTE | 2017-03-13 13:13 | HOSPPROG ---
Hospitalist Progress Note Assessment/Plan: # Acute tib/fib fracture - pt with persistent leg pain now localizing below the knee - new bruising and blistering this am mechanics of fall if any are unknown - Tib/fib xray (personally reviewed and interpreted) IM nail in good position - cont prn pain meds - PT/OT - looking for SNF placement # sepsis- (tachycardia and leukocytosis at presentation) resolved - blood and urine cultures NGTD oxygen saturations 95% on room air - dc empiric antibiotics # suspected UTI- abnormal urinalysis urine culture pending- history of multi- drug resistant Proteus - completed 4 day course of Abx - cultures negative with stop as have treated uncomplicated cystitis # severe schizophrenia- we do believe this is impacting her ability for self- care at home - thank you to Psychiatry for medication and discharge recommendations - continue home risperidone at current dosing # acute hyponatremia thought secondary to hypovolemia- resolved with fluid resuscitation- remains 139 - continue IVF while NPO # acute leukocytosis white count 19 improved -> 8 with empiric antibiotics and supportive care # prophylaxis Lovenox # diet regular # disposition greater than 2 midnights patient will be discharged to SNF for rehabilitation post surgical repair of her tib-fib fracture I have discussed the case with Case Management- will arrange [facility] Subjective: Pain markedly improved Objective: Vital Signs Temp Pulse Resp BP Pulse Ox 36.8 C 123 H 16 137/100 H 93 03/13/17 12:00 03/13/17 12:00 03/13/17 12:00 03/13/17 12:00 03/13/17 12:00 Microbiology 03/10/17 09:15 Urine Culture - Final Urine,Catheterized Laboratory Results 03/12/17 05:37 03/13/17 04:33 03/12/17 03/13/17 03/14/17 05:59 05:59 05:59 Intake Total 800 Output Total 2675 485 Balance -2675 315 PT 13.7 SEC (12.0-15.0) 03/09/17 19:41 INR 1.06 (0.83-1.16) 03/09/17 19:41 - Physical Exam Constitutional: appears nourished Eyes: anicteric sclera Ears, Nose, Mouth, Throat: moist mucous membranes Cardiovascular: regular rate and rhythym Respiratory: no respiratory distress, no rales or rhonchi Gastrointestinal: normoactive bowel sounds, soft, non-tender abdomen Genitourinary: no bladder fullness Skin: warm, normal color Musculoskeletal: No asymmetric calves Neurologic: AAOx3 Psychiatric: interacting appropriately Lymph, Heme, Immunologic: no cervical LAD ICD10 Worksheet Patient Problems: Problems Problem Status Onset Fall Acute Hip pain Acute Severe sepsis Acute Acute psychosis Acute Diarrhea Acute
--- NOTE | 2017-03-13 15:15 | SOAPPROG ---
SOAP Progress Note Assessment/Plan: Assessment: left tib fib fracture Plan: s/p im nail will need slow mobilization with pt/ot recommended tdwb secondary to advanced osteoporosis dvt precautions will need snf 03/11/17 14:34 03/13/17 15:14 Subjective: sleeping Objective: Vital Signs Temp Pulse Resp BP Pulse Ox 36.8 C 123 H 16 137/100 H 93 03/13/17 12:00 03/13/17 12:00 03/13/17 12:00 03/13/17 12:00 03/13/17 12:00 Microbiology 03/10/17 09:15 Urine Culture - Final Urine,Catheterized Laboratory Results 03/12/17 05:37 03/13/17 04:33 03/12/17 03/13/17 03/14/17 05:59 05:59 05:59 Intake Total 800 Output Total 2675 485 Balance -2675 315 PT 13.7 SEC (12.0-15.0) 03/09/17 19:41 INR 1.06 (0.83-1.16) 03/09/17 19:41 deferred xrays anatomic alignement \ ICD10 Worksheet Patient Problems: Problems Problem Status Onset Fall Acute Hip pain Acute Severe sepsis Acute Acute psychosis Acute Diarrhea Acute
[2017-03-14] MEDS: HYDROCODONE/APAP 5/325 TAB PO PRN ×3 (03:34→21:05)
--- NOTE | 2017-03-14 09:29 | HOSPPROG ---
Hospitalist Progress Note Assessment/Plan: Patient is a 76-year-old female with severe schizophrenia. She presented to the emergency department after being found next to the edge of her bed. She reported that she had a fall and was unable to ambulate. She wass having terrible left-sided hip and knee pain. An x-ray of her hip revealed severe arthritis which is chronic. X-rays of her tibia and fibula showed a mid shaft 50% displaced and mildly angulated tibia and fibular fracture. Today is my 1st encounter with the patient. Chart reviewed. # Acute tib/fib fracture - s/p intramedullary implant will need PT and OT patient is saying she can't get oob due to pain # sepsis- (tachycardia and leukocytosis at presentation) -noted on admission blood cx and urine cx NGTD O2 levels stable on room air # suspected UTI- urine cx showed no growth was treated w 4 day course of abx # severe schizophrenia- we do believe this is impacting her ability for self- care at home - reviewed psychiatrist's input and appreciate their involvement - continue home risperidone at current dosing # acute hyponatremia thought secondary to hypovolemia -resolved # anemia -will follow # acute leukocytosis resolved # DVT prophylaxis Lovenox # plan. The nursing staff to remove the [place]. Encouraged the patient to get out of bed. Will discuss with case management about possible placement. Subjective: Laila is comfortable as long as she doesn't get OOB. Objective: Vital Signs Temp Pulse Resp BP Pulse Ox 36.9 C 111 H 17 168/67 H 95 03/14/17 08:00 03/14/17 08:00 03/14/17 08:00 03/14/17 08:00 03/14/17 08:00 Laboratory Results 03/12/17 05:37 03/13/17 04:33 03/13/17 03/14/17 03/15/17 05:59 05:59 05:59 Intake Total 800 550 Output Total 485 700 Balance 315 -150 PT 13.7 SEC (12.0-15.0) 03/09/17 19:41 INR 1.06 (0.83-1.16) 03/09/17 19:41 - Physical Exam Constitutional: uncomfortable Eyes: PERRL Ears, Nose, Mouth, Throat: hearing normal Cardiovascular: regular rate and rhythym, tachycardia Respiratory: no respiratory distress Gastrointestinal: normoactive bowel sounds Genitourinary: morocho in urethra Skin: warm, other (lower ext with dressing in place/toes warm) Neurologic: AAOx3 Psychiatric: interacting appropriately, not anxious ICD10 Worksheet Patient Problems: Problems Problem Status Onset Fall Acute Hip pain Acute Severe sepsis Acute Acute psychosis Acute Diarrhea Acute
[2017-03-14] MEDS: DOCUSATE SODIUM 100 MG CAP PO SCH ×2 (09:51→21:05)
[2017-03-14] MEDS: ASPIRIN 325 MG TAB PO SCH (09:51)
[2017-03-14] MEDS: CHOLECALCIFEROL VIT D3 1,000 UNITS TAB PO SCH (09:52)
[2017-03-14] MEDS: OXYBUTYNIN CHLORIDE 5 MG TAB PO SCH ×2 (09:53→21:05)
[2017-03-14] MEDS: LISINOPRIL 10 MG TAB PO SCH (09:53)
[2017-03-14] MEDS: risperiDONE 2 MG TAB PO SCH (09:54)
[2017-03-14] MEDS: DONEPEZIL HCL 5 MG TAB PO SCH (09:54)
[2017-03-14] MEDS: risperiDONE 1 MG TAB PO SCH (09:54)
[2017-03-14] MEDS: ENOXAPARIN 40 MG/0.4 ML SYR SC SCH (09:57)
[2017-03-15 04:38] LABS: HEMATOCRIT 21.4 % (38.0-47.0)
[2017-03-15] MEDS: HYDROCODONE/APAP 5/325 TAB PO PRN ×2 (04:40→21:01)
[2017-03-15] MEDS: DOCUSATE SODIUM 100 MG CAP PO SCH ×2 (09:08→21:01)
[2017-03-15] MEDS: CHOLECALCIFEROL VIT D3 1,000 UNITS TAB PO SCH (09:08)
[2017-03-15] MEDS: DONEPEZIL HCL 5 MG TAB PO SCH (09:08)
[2017-03-15] MEDS: OXYBUTYNIN CHLORIDE 5 MG TAB PO SCH ×2 (09:08→21:02)
[2017-03-15] MEDS: LISINOPRIL 10 MG TAB PO SCH (09:08)
[2017-03-15] MEDS: ASPIRIN 325 MG TAB PO SCH (09:08)
[2017-03-15] MEDS: risperiDONE 2 MG TAB PO SCH (09:09)
[2017-03-15] MEDS: risperiDONE 1 MG TAB PO SCH (09:09)
[2017-03-15] MEDS: ENOXAPARIN 40 MG/0.4 ML SYR SC SCH (09:12)
[2017-03-15] MEDS ORDERED: ACETAMINOPHEN 325 MG TAB PO ONE (09:43)
--- NOTE | 2017-03-15 09:43 | HOSPPROG ---
Hospitalist Progress Note Assessment/Plan: Patient is a 76-year-old female with severe schizophrenia. She presented to the emergency department after being found next to the edge of her bed. She reported that she had a fall and was unable to ambulate. She wass having terrible left-sided hip and knee pain. An x-ray of her hip revealed severe arthritis which is chronic. X-rays of her tibia and fibula showed a mid shaft 50% displaced and mildly angulated tibia and fibular fracture. # Acute tib/fib fracture - s/p intramedullary implant will need PT and OT patient is saying she can't get oob due to pain # sepsis- (tachycardia and leukocytosis at presentation) -noted on admission blood cx and urine cx NGTD O2 levels stable on room air # suspected UTI- urine cx showed no growth was treated w 4 day course of abx # tachycardia Suspect from being volume depleted even though she has a stable blood pressure # severe schizophrenia- we do believe this is impacting her ability for self- care at home - reviewed psychiatrist's input and appreciate their involvement - continue home risperidone at current dosing # acute hyponatremia thought secondary to hypovolemia -resolved # anemia -hemoglobin is 7 hematocrit is 21 Will transfuse and give 1 unit today Reviewed with the patient risk and benefits # acute leukocytosis resolved # DVT prophylaxis Lovenox # plan. transfuse/recheck labs in a.m./CM working on placement Subjective: Laila is oob in chair and says pain is well managed. Objective: Vital Signs Temp Pulse Resp BP Pulse Ox 36.4 C 85 16 156/74 H 97 03/15/17 08:00 03/15/17 08:00 03/15/17 08:00 03/15/17 08:00 03/15/17 08:00 Microbiology 03/09/17 20:50 Blood Culture - Final Blood 03/09/17 20:36 Blood Culture - Final Blood Laboratory Results 03/15/17 04:20 03/13/17 04:33 03/14/17 03/15/17 03/16/17 05:59 05:59 05:59 Intake Total 550 900 Output Total 700 Balance -150 900 PT 13.7 SEC (12.0-15.0) 03/09/17 19:41 INR 1.06 (0.83-1.16) 03/09/17 19:41 - Physical Exam Constitutional: no apparent distress, appears nourished Eyes: PERRL Ears, Nose, Mouth, Throat: hearing normal Cardiovascular: regular rate and rhythym, tachycardia Respiratory: no respiratory distress Skin: warm Musculoskeletal: generalized weakness Neurologic: AAOx3 Psychiatric: interacting appropriately ICD10 Worksheet Patient Problems: Problems Problem Status Onset Fall Acute Hip pain Acute Severe sepsis Acute Acute psychosis Acute Diarrhea Acute
[2017-03-15] MEDS ORDERED: BISACODYL 10 MG SUPP PR PRN (13:53)
[2017-03-15] MEDS ORDERED: LACTULOSE 20 GM/30 ML UDCUP PO PRN (13:53)
[2017-03-15] MEDS ORDERED: MAGNESIUM HYDROXIDE 30 ML UDCUP PO PRN (13:53)
[2017-03-15] MEDS: POLYETHYLENE GLYCOL 3350 17 GM PKT PO SCH (15:46)
[2017-03-15] MEDS: SENNOSIDES/DOCUSATE SODIUM TAB PO SCH (21:01)
[2017-03-16] MEDS: HYDROCODONE/APAP 5/325 TAB PO PRN ×3 (03:17→20:28)
[2017-03-16 05:11] LABS: HEMATOCRIT 25.5 % (38.0-47.0); HEMOGLOBIN 8.5 g/dL (12.6-16.3)
[2017-03-16 05:16] LABS: ANION GAP 6 mEq/L (8-16); CALCIUM 8.2 mg/dL (8.5-10.4); CARBON DIOXIDE 27 mEq/l (22-31); CHLORIDE 104 mEq/L (97-110); CREATININE 0.5 mg/dL (0.6-1.0); GLOMERULAR FILTRATION RATE > 60; GLUCOSE 101 mg/dL (70-100); SODIUM 137 mEq/L (134-144)
--- NOTE | 2017-03-16 06:56 | SOAPPROG ---
SOAP Progress Note Assessment/Plan: Assessment: left tib fib fracture Plan: s/p im nail will need slow mobilization with pt/ot recommended tdwb secondary to advanced osteoporosis dvt precautions will need snf 03/11/17 14:34 03/13/17 15:14 03/16/17 06:55 Subjective: able to get up to chair yesterday pain across lower leg Objective: Vital Signs Temp Pulse Resp BP Pulse Ox 37.3 C 81 16 160/72 H 99 03/15/17 23:30 03/15/17 23:30 03/15/17 23:30 03/15/17 23:30 03/15/17 23:30 Microbiology 03/09/17 20:50 Blood Culture - Final Blood 03/09/17 20:36 Blood Culture - Final Blood Laboratory Results 03/16/17 04:45 03/16/17 04:45 03/15/17 03/16/17 03/17/17 05:59 05:59 05:59 Intake Total 900 Balance 900 PT 13.7 SEC (12.0-15.0) 03/09/17 19:41 INR 1.06 (0.83-1.16) 03/09/17 19:41 dressing intact intact pf,df,ehl toes warm and pink swelling to dorsum of foot no evidence of compartment syndrome ICD10 Worksheet Patient Problems: Problems Problem Status Onset Fall Acute Hip pain Acute Severe sepsis Acute Acute psychosis Acute Diarrhea Acute
--- NOTE | 2017-03-16 08:41 | HOSPPROG ---
Hospitalist Progress Note Assessment/Plan: Patient is a 76-year-old female with severe schizophrenia. She presented to the emergency department after being found next to the edge of her bed. She reported that she had a fall and was unable to ambulate. She wass having terrible left-sided hip and knee pain. An x-ray of her hip revealed severe arthritis which is chronic. X-rays of her tibia and fibula showed a mid shaft 50% displaced and mildly angulated tibia and fibular fracture. # Acute tib/fib fracture - s/p intramedullary implant will need PT and OT patient is saying she can't get oob due to pain # sepsis- (tachycardia and leukocytosis at presentation) -noted on admission blood cx and urine cx NGTD O2 levels stable on room air # suspected UTI- urine cx showed no growth was treated w 4 day course of abx # tachycardia resolved # severe schizophrenia- we do believe this is impacting her ability for self- care at home - reviewed psychiatrist's input and appreciate their involvement - continue home risperidone at current dosing # acute hyponatremia thought secondary to hypovolemia -resolved # anemia improved w transfusion Reviewed with the patient risk and benefits # acute leukocytosis resolved # DVT prophylaxis Lovenox # plan. will likely go to [facility] in next few days/ paper work pending. Subjective: chi has no complaitns. Objective: Vital Signs Temp Pulse Resp BP Pulse Ox 37.3 C 81 16 160/72 H 99 03/15/17 23:30 03/15/17 23:30 03/15/17 23:30 03/15/17 23:30 03/15/17 23:30 Microbiology 03/09/17 20:50 Blood Culture - Final Blood 03/09/17 20:36 Blood Culture - Final Blood Laboratory Results 03/16/17 04:45 03/16/17 04:45 03/15/17 03/16/17 03/17/17 05:59 05:59 05:59 Intake Total 900 Balance 900 PT 13.7 SEC (12.0-15.0) 03/09/17 19:41 INR 1.06 (0.83-1.16) 03/09/17 19:41 - Physical Exam Constitutional: no apparent distress Eyes: PERRL Ears, Nose, Mouth, Throat: hearing normal Cardiovascular: regular rate and rhythym, No tachycardia Respiratory: no respiratory distress Gastrointestinal: normoactive bowel sounds Skin: warm Musculoskeletal: muscular tenderness, generalized weakness Neurologic: AAOx3 Psychiatric: interacting appropriately ICD10 Worksheet Patient Problems: Problems Problem Status Onset Fall Acute Hip pain Acute Severe sepsis Acute Acute psychosis Acute Diarrhea Acute
[2017-03-16] MEDS: POLYETHYLENE GLYCOL 3350 17 GM PKT PO SCH (09:06)
[2017-03-16] MEDS: OXYBUTYNIN CHLORIDE 5 MG TAB PO SCH ×2 (09:06→20:28)
[2017-03-16] MEDS: CHOLECALCIFEROL VIT D3 1,000 UNITS TAB PO SCH (09:06)
[2017-03-16] MEDS: ENOXAPARIN 40 MG/0.4 ML SYR SC SCH (09:06)
[2017-03-16] MEDS: DONEPEZIL HCL 5 MG TAB PO SCH (09:07)
[2017-03-16] MEDS: LISINOPRIL 10 MG TAB PO SCH (09:07)
[2017-03-16] MEDS: SENNOSIDES/DOCUSATE SODIUM TAB PO SCH ×2 (09:07→09:08)
[2017-03-16] MEDS: risperiDONE 2 MG TAB PO SCH (09:07)
[2017-03-16] MEDS: risperiDONE 1 MG TAB PO SCH (09:07)
[2017-03-16] MEDS: ASPIRIN 325 MG TAB PO SCH (09:08)
[2017-03-16] MEDS: DOCUSATE SODIUM 100 MG CAP PO SCH ×2 (09:24→20:28)
[2017-03-16 16:24] LABS: HEMATOCRIT 32.1 % (38.0-47.0); HEMOGLOBIN 10.5 g/dL (12.6-16.3)
--- NOTE | 2017-03-16 16:47 | CPEKG ---
Heart Rate: 121 RR Interval: 496 P-R Interval: 144 QRSD Interval: 70 QT Interval: 296 QTC Interval: 420 P [place]: 55 QRS [place]: 40 T Wave [place]: 12 EKG Severity - OTHERWISE NORMAL ECG - EKG Impression: SINUS TACHYCARDIA EKG Impression: NO SIGNIFICANT CHANGE SINCE MARCH 09, 2017 Electronically Signed By: Gunner Harper 17-Mar-2017 06:25:28
[2017-03-17 05:26] LABS: HEMATOCRIT 25.3 % (38.0-47.0); HEMOGLOBIN 8.4 g/dL (12.6-16.3)
[2017-03-17] MEDS: HYDROCODONE/APAP 5/325 TAB PO PRN (05:51)
[2017-03-17] MEDS: ASPIRIN 325 MG TAB PO SCH (09:43)
[2017-03-17] MEDS: CHOLECALCIFEROL VIT D3 1,000 UNITS TAB PO SCH (09:43)
[2017-03-17] MEDS: risperiDONE 1 MG TAB PO SCH (09:44)
[2017-03-17] MEDS: LISINOPRIL 10 MG TAB PO SCH (09:44)
[2017-03-17] MEDS: DONEPEZIL HCL 5 MG TAB PO SCH (09:44)
[2017-03-17] MEDS: OXYBUTYNIN CHLORIDE 5 MG TAB PO SCH ×2 (09:44→22:09)
[2017-03-17] MEDS: risperiDONE 2 MG TAB PO SCH (09:45)
[2017-03-17] MEDS: SENNOSIDES/DOCUSATE SODIUM TAB PO SCH ×2 (09:45→22:09)
[2017-03-17] MEDS: DOCUSATE SODIUM 100 MG CAP PO SCH ×2 (09:45→22:08)
[2017-03-17] MEDS: ENOXAPARIN 40 MG/0.4 ML SYR SC SCH (09:45)
[2017-03-17] MEDS: POLYETHYLENE GLYCOL 3350 17 GM PKT PO SCH (10:01)
[2017-03-17] MEDS: oxyCODONE IR 5 MG TAB PO PRN ×3 (12:13→22:08)
--- NOTE | 2017-03-17 15:32 | HOSPPROG ---
Hospitalist Progress Note Assessment/Plan: Hospitalist Progress Note Assessment/Plan: Patient is a 76-year-old female with severe schizophrenia. She presented to the emergency department after being found next to the edge of her bed. She reported that she had a fall and was unable to ambulate. She was having terrible left-sided hip and knee pain. An x-ray of her hip revealed severe arthritis which is chronic. X-rays of her tibia and fibula showed a mid shaft 50% displaced and mildly angulated tibia and fibular fracture. This is my first encounter, chart reviewed. D/W CM and Dr Mosqueda. # Acute tib/fib fracture - s/p intramedullary implant will need PT and OT patient is saying she can't get oob due to pain # sepsis- (tachycardia and leukocytosis at presentation) -noted on admission blood cx and urine cx NGTD O2 levels stable on room air # suspected UTI- urine cx showed no growth was treated w 4 day course of abx # tachycardia intermittent EKG, personally reviewed, DDimer elevated get CTA to R/O PE if negative consider beta kandis # severe schizophrenia- we do believe this is impacting her ability for self- care at home - reviewed psychiatrist's input and appreciate their involvement - continue home risperidone at current dosing # acute hyponatremia thought secondary to hypovolemia -resolved # anemia improved w transfusion #Pain add oxy # acute leukocytosis resolved # DVT prophylaxis Lovenox # plan. will likely go to [facility] in next few days/ paper work pending. Subjective: Up in chair. Some leg pain. No other issues. Objective: Vital Signs Temp Pulse Resp BP Pulse Ox 36.8 C 128 H 18 142/62 H 93 03/17/17 07:57 03/17/17 08:45 03/17/17 07:57 03/17/17 09:44 03/17/17 08:45 Laboratory Results 03/17/17 04:52 03/16/17 04:45 03/16/17 03/17/17 03/18/17 05:59 05:59 05:59 Intake Total 400 Balance 400 PT 13.7 SEC (12.0-15.0) 03/09/17 19:41 INR 1.06 (0.83-1.16) 03/09/17 19:41 - Physical Exam Constitutional: appears nourished, chronically ill appearing, uncomfortable Eyes: PERRL, anicteric sclera, EOMI Ears, Nose, Mouth, Throat: moist mucous membranes, hearing normal, ears appear normal Cardiovascular: tachycardia, No JVD, No edema Respiratory: no respiratory distress, no rales or rhonchi, reduced air movement Gastrointestinal: normoactive bowel sounds, No tenderness, No ascites Skin: warm, normal color, No erythema Musculoskeletal: no joint effusions, pain with ROM, generalized weakness Psychiatric: anxious, poor insight, poor judgement, poor memory, No not encephalopathic ICD10 Worksheet Patient Problems: Problems Problem Status Onset Hip pain Acute Acute psychosis Acute Diarrhea Acute Fall Acute Severe sepsis Acute
[2017-03-17] MEDS ORDERED: IOPAMIDOL (ISOVUE 370) 100 ML BTL IV ONE (16:55)
[2017-03-17 18:39] LABS: % IMMATURE GRANULYOCYTES 1.6 % (0.0-1.1); ABSOLUTE IMMATURE GRANULOCYTES 0.17 10^3/uL (0.00-0.10); ADD DIFF? NO; ADD MORPH? NO; ADD SCAN? NO; ATYPICAL LYMPHOCYTE FLAG 0 (0-99); FRAGMENT RBC FLAG 0 (0-99); HEMATOCRIT 26.6 % (38.0-47.0); LEFT SHIFT FLG 20 (0-99); LIPEMIA HEMOLYSIS FLAG 90 (0-99); MEAN CELL HEMOGLOBIN 30.5 pg (27.9-34.1); MEAN CELL HEMOGLOBIN CONCENTR. 33.8 g/dL (32.4-36.7); MEAN CELL VOLUME 90.2 fL (81.5-99.8); MEAN PLATELET VOLUME 9.4 fL (8.7-11.7); PLATELET CLUMPS FLAG 0 (0-99); PLATELET COUNT 280 10^3/uL (150-400); RED BLOOD CELL COUNT 2.95 10^6/uL (4.18-5.33); RED CELL DISTRIBUTION WIDTH 12.5 % (11.5-15.2)
--- NOTE | 2017-03-17 18:44 | CPEKG ---
Heart Rate: 75 RR Interval: 800 P-R Interval: 164 QRSD Interval: 78 QT Interval: 352 QTC Interval: 394 P [place]: 50 QRS [place]: 31 T Wave [place]: 20 EKG Severity - BORDERLINE ECG - EKG Impression: SINUS RHYTHM EKG Impression: LVH BY VOLTAGE EKG Impression: Diffuse ST-T wave abnormalities-- More pronounced since March 16, 2017 Electronically Signed By: Gunner Harper 18-Mar-2017 10:52:41
[2017-03-17] MEDS: METOPROLOL TARTRATE 25 MG TAB PO SCH (22:09)
[2017-03-18 06:17] LABS: CHOLESTEROL 167 mg/dL (140-220); CHOLESTEROL/HDL RATIO 4.07 RATIO (1.00-4.44); HIGH DENSITY LIPOPROTEIN 41 mg/dL (40-85); LDL/HDL RATIO 2.73 RATIO (1.00-3.22); LOW DENSITY LIPOPROTEIN 112 mg/dL (80-100); NON-HIGH DENSITY LIPOPROTEIN 126 mg/dL (90-129); TRIGLYCERIDE 70 mg/dL (35-135); VERY LOW DENSITY LIPOPROTEINS 14 mg/dL (8-25)
[2017-03-18 06:27] LABS: TROPONIN I < 0.012 ng/mL (0-0.034)
--- NOTE | 2017-03-18 06:34 | SOAPPROG ---
SOAP Progress Note Assessment/Plan: Assessment: left tib fib fracture Plan: s/p im nail will need slow mobilization with pt/ot secondary to pain recommended tdwb secondary to advanced osteoporosis dvt precautions daily dressing changes will need snf 03/11/17 14:34 03/13/17 15:14 03/16/17 06:55 03/18/17 06:33 Subjective: not sleeping well no cp or sob pain across lower leg Objective: Vital Signs Temp Pulse Resp BP Pulse Ox 36.5 C 79 15 144/66 H 98 03/17/17 23:32 03/17/17 23:32 03/17/17 23:32 03/17/17 23:32 03/17/17 23:32 Laboratory Results 03/17/17 18:30 03/16/17 04:45 03/17/17 03/18/17 03/19/17 05:59 05:59 05:59 Intake Total 400 100 Output Total 1300 Balance 400 -1200 PT 13.7 SEC (12.0-15.0) 03/09/17 19:41 INR 1.06 (0.83-1.16) 03/09/17 19:41 dressing intact intact pf,df,ehl toes warm and pink intact active digital flexion and exte ICD10 Worksheet Patient Problems: Problems Problem Status Onset Fall Acute Hip pain Acute Severe sepsis Acute Acute psychosis Acute Diarrhea Acute
[2017-03-18] MEDS: oxyCODONE IR 5 MG TAB PO PRN ×3 (07:58→21:52)
[2017-03-18] MEDS: DOCUSATE SODIUM 100 MG CAP PO SCH ×2 (07:59→20:33)
[2017-03-18] MEDS: CHOLECALCIFEROL VIT D3 1,000 UNITS TAB PO SCH (07:59)
[2017-03-18] MEDS: SENNOSIDES/DOCUSATE SODIUM TAB PO SCH ×2 (07:59→20:35)
[2017-03-18] MEDS: METOPROLOL TARTRATE 25 MG TAB PO SCH ×2 (07:59→20:33)
[2017-03-18] MEDS: ASPIRIN 325 MG TAB PO SCH (07:59)
[2017-03-18] MEDS: DONEPEZIL HCL 5 MG TAB PO SCH (08:00)
[2017-03-18] MEDS: OXYBUTYNIN CHLORIDE 5 MG TAB PO SCH ×2 (08:01→20:35)
[2017-03-18] MEDS: risperiDONE 1 MG TAB PO SCH (08:01)
[2017-03-18] MEDS: LISINOPRIL 10 MG TAB PO SCH (08:01)
[2017-03-18] MEDS: risperiDONE 2 MG TAB PO SCH (08:02)
[2017-03-18] MEDS ORDERED: REGADENOSON 0.4 MG/5 ML SYR IVP ONE (10:13)
--- NOTE | 2017-03-18 11:27 | ECHO ---
[id number] + + [address] : : [place] [address] : : [phone] + Adult Echocardiographic Report + -------+ :Name: ANDI MUSTAFA LStudy Date: 03/18/2017 08:36 AM : : Hospital Admission Number: [id number] Locati on: 359: :: 1940 Gender: Female Height: 67 in : :Age: 76 yrs Race: WH Weight: 147 lb : :Reason For Study: Eval for apical hypokinesis : : BSA: 1.8 meter s2 : + -------+ MMode/2D Measurements \T\ Calculations IVSd: 1.4 cm LVIDd: 4.0 cm FS: 45.0 % Ao root diam: LVPWd: 1.1 cm LVIDs: 2.2 cm EDV(Teich): 3.3 cm 68.4 ml LA dimension: ESV(Teich): 3.5 cm 15.8 ml EF(Teich): 76.9 % LVLd ap4: 7.1 cm SV(MOD-sp4): EDV(MOD-sp4): 41.0 ml 59.0 ml LVLs ap4: 5.6 cm ESV(MOD-sp4): 18.0 ml EF(MOD-sp4): 69.5 % Normal Measurement Values: + + :LVIDd (3.5-5.7cm) IVSd (0.6-1.1cm) LVPWd (0.6-1.1cm) Aortic Root (2.0-3.7cm)Left Atrium (1.5-4.0cm): :LV Vol(d) (76-115ml) LV Vol(s) (29-48ml) Ejec Fraction (50-65%)PV Willian (0.6- 1.2m/s) TV Willian (0.4-1.0m/s) : :MV E Willian (0.8-1.0m/s)MV A Willian (0.3-1.0m/s)LVOT Willian (0.7-1.2m/s) Asc Ao Willian ( 0.9-1.8m/s) : + + Doppler Measurements \T\ Calculations MV E max willian: 64.2 cm/sec Ao V2 max: 143.3 cm/sec TR max willian: 234.8 cm/sec MV A max willian: 77.5 cm/sec Ao max P.2 mmHg TR max P.1 mmHg MV E/A: 0.83 RAP systole: 5.0 mmHg RVSP(TR): 27.1 mmHg Left Ventricle The left ventricle is normal in size. There is moderate asymmetric left ventricular hypertrophy. The left ventricle is hyperdynamic. Ejection Fraction = 70-75%. No regional wall motion abnormalities noted. Right Ventricle The right ventricle is mildly dilated. The right ventricular systolic function is normal. Atria The left atrial size is normal. Right atrial size is normal. Mitral Valve The mitral valve is normal in structure and function. There is no evidence of mitral valve prolapse. There is no mitral valve stenosis. There is trace mitral regurgitation. Tricuspid Valve Normal tricuspid valve. There is trace tricuspid regurgitation. Right ventricular systolic pressure is normal. Aortic Valve The aortic valve is trileaflet. The aortic valve opens well. There is no aortic stenosis. Trace aortic regurgitation. Pulmonic Valve The pulmonic valve is normal in structure and function. There is no pulmonic valvular regurgitation. Great Vessels The aortic root is normal size. Pericardium/Pleural There is a fat pad seen. trivial pericardial effusion. Conclusion A complete two-dimensional transthoracic echocardiogram was performed (2D, M-mode, Doppler and color flow Doppler). There is moderate asymmetric left ventricular hypertrophy. The left ventricle is hyperdynamic. Ejection Fraction = 70-75%. No regional wall motion abnormalities noted. There is trace mitral regurgitation. There is trace tricuspid regurgitation. Normal estimated PA systolic pressure Trace aortic regurgitation. trivial pericardial effusion. No prior echo Final Reading Physician: Dr Anjana Kuo electronically signed on 03/18/2017 11:26 AM Ordering Physician: Behzad Alcantara Performed By: Erika Ramos RDCS
[2017-03-18] MEDS: ENOXAPARIN 40 MG/0.4 ML SYR SC SCH (12:01)
[2017-03-18] MEDS: POLYETHYLENE GLYCOL 3350 17 GM PKT PO SCH (12:01)
--- NOTE | 2017-03-18 13:55 | HOSPPROG ---
Hospitalist Progress Note Assessment/Plan: Hospitalist Progress Note Assessment/Plan: Patient is a 76-year-old female with severe schizophrenia. She presented to the emergency department after being found next to the edge of her bed. She reported that she had a fall and was unable to ambulate. She was having terrible left-sided hip and knee pain. An x-ray of her hip revealed severe arthritis which is chronic. X-rays of her tibia and fibula showed a mid shaft 50% displaced and mildly angulated tibia and fibular fracture. # Acute tib/fib fracture - s/p intramedullary implant will need PT and OT # sepsis- (tachycardia and leukocytosis at presentation) -noted on admission blood cx and urine cx NGTD O2 levels stable on room air no sepsis # suspected UTI- urine cx showed no growth was treated w 4 day course of abx # tachycardia intermittent EKG, personally reviewed, ST INGRAMimer elevated CTA negative for PE nuc stress normal ECHO stable will start low dose beta kandis # severe schizophrenia- we do believe this is impacting her ability for self- care at home - reviewed psychiatrist's input and appreciate their involvement - continue home risperidone at current dosing # acute hyponatremia thought secondary to hypovolemia -resolved # anemia improved w transfusion #Pain add oxy # acute leukocytosis resolved # DVT prophylaxis Lovenox # plan. will likely go to [facility] in next few days/ paper work pending. Subjective: Feeling tired today. pain stable. Objective: Vital Signs Temp Pulse Resp BP Pulse Ox 36.9 C 100 15 157/81 H 95 03/18/17 07:48 03/18/17 07:59 03/18/17 07:48 03/18/17 08:01 03/18/17 07:48 Laboratory Results 03/17/17 18:30 03/16/17 04:45 03/17/17 03/18/17 03/19/17 05:59 05:59 05:59 Intake Total 400 100 Output Total 1300 Balance 400 -1200 PT 13.7 SEC (12.0-15.0) 03/09/17 19:41 INR 1.06 (0.83-1.16) 03/09/17 19:41 - Physical Exam Constitutional: no apparent distress, appears nourished Eyes: PERRL, anicteric sclera Ears, Nose, Mouth, Throat: moist mucous membranes, hearing normal Cardiovascular: regular rate and rhythym, tachycardia Respiratory: no respiratory distress, reduced air movement Gastrointestinal: normoactive bowel sounds, No ascites Skin: warm, normal color Musculoskeletal: pain with ROM, generalized weakness Psychiatric: not anxious, poor insight, poor judgement, poor memory ICD10 Worksheet Patient Problems: Problems Problem Status Onset Hip pain Acute Acute psychosis Acute Diarrhea Acute Fall Acute Severe sepsis Acute
[2017-03-18] MEDS ORDERED: HYDROCODONE/APAP 5/325 TAB PO PRN (14:28)
--- NOTE | 2017-03-18 21:14 | CPR ---
[f rep st] NONINVASIVE CARDIAC PROCEDURE REPORT PROCEDURE: Lexiscan MPI study. INDICATION FOR PROCEDURE: Cardiac risks, episodes of tachycardia, evaluating for possible cardiac i schemia, patient with recent tibial fracture unable to do treadmill testing. PRE: After obtaining informed consent and ensuring patient's n.p.o. status of caffeine for greater than 12 hours, patient was placed on electrocardiogram. Initial EKG showing sinus rhythm, normal ax is, nonspecific T-wave abnormalities in inferolateral leads. Patient denies any chest pain or short ness of breath. Initial blood pressure 150/70, saturating 98% on 2 L/minute via nasal cannula. INJECTION: Patient was given Lexiscan slow IV push followed by nuclear isotope. She remained asymp tomatic of any symptoms postinjection. Her heart rate did increase up to 115 beats per minute. She was noted to have some mild T-wave inversions in V4 through V6 postinjection. Her blood pressure r emained stable. Within 5 minutes, EKG returned back to baseline. Patient again continued to remain asymptomatic, vital signs were stable, final blood pressure of 122/90, saturating 91%. IMPRESSION: A 76-year-old female undergoing Lexiscan due to having episodes of tachycardia on the f carlos and unable to do exercise treadmill due to recent tibial fracture. She tolerated injection wit h no symptoms suggesting of ischemia throughout the procedure. Was noted to have mild T-wave invers ion in lateral leads postinjection that returned back to baseline within 5 minutes. Vital signs wer e stable. She will finish poststress imaging in Nuclear Medicine at this time. /[id number]/MODL
[2017-03-18 22:32] VITALS: RESP 16
[2017-03-19 07:50] VITALS: TEMP 99.1
[2017-03-19] MEDS: LISINOPRIL 10 MG TAB PO SCH (08:37)
[2017-03-19] MEDS: CHOLECALCIFEROL VIT D3 1,000 UNITS TAB PO SCH (08:37)
[2017-03-19] MEDS: ASPIRIN 325 MG TAB PO SCH (08:41)
[2017-03-19] MEDS: SENNOSIDES/DOCUSATE SODIUM TAB PO SCH (08:41)
[2017-03-19] MEDS: DOCUSATE SODIUM 100 MG CAP PO SCH (08:41)
[2017-03-19] MEDS: OXYBUTYNIN CHLORIDE 5 MG TAB PO SCH (08:41)
[2017-03-19] MEDS: risperiDONE 1 MG TAB PO SCH (08:42)
[2017-03-19] MEDS: oxyCODONE IR 5 MG TAB PO PRN ×2 (08:42→14:49)
[2017-03-19] MEDS: risperiDONE 2 MG TAB PO SCH (08:42)
[2017-03-19] MEDS: DONEPEZIL HCL 5 MG TAB PO SCH (08:44)
[2017-03-19] MEDS: METOPROLOL TARTRATE 25 MG TAB PO SCH (08:46)
[2017-03-19] MEDS: ENOXAPARIN 40 MG/0.4 ML SYR SC SCH (08:47)
[2017-03-19] MEDS: POLYETHYLENE GLYCOL 3350 17 GM PKT PO SCH (08:49)
[2017-03-19 09:58] VITALS: BP 119/82; PULSE 104; O2SAT 92
--- NOTE | 2017-03-19 11:21 | PDIAF ---
- Diagnosis Diagnosis: left tibia fx, schizophrenia Code Status: Full Code - Medication Management Discharge Medications: Medications to Continue on Transfer Albuterol Sulfate [Ventolin Hfa] 1 - 2 puffs IH Q6H PRN 03/09/17 [Last Taken Unknown] Aspirin [Aspirin 325 mg (*)] 325 mg PO DAILY 03/09/17 [Last Taken Unknown] Cholecalciferol Vit D3 [Vitamin D3 (*)] 5,000 units PO DAILY 03/09/17 [Last Taken Unknown] Diclofenac Potassium 50 mg PO BID PRN 03/09/17 [Last Taken Unknown] Docusate Sodium [Colace 100 MG (*)] 100 mg PO BID 03/09/17 [Last Taken Unknown] Donepezil HCl [Aricept 5 MG (*)] 5 mg PO DAILY 03/09/17 [Last Taken Unknown] Glycerin 1 each RC DAILY PRN 03/09/17 [Last Taken Unknown] Hydrocortisone 2.5% [Hydrocortisone 2.5% cream (*)] 1 faby TP BID PRN 03/09/17 [ Last Taken Unknown] Lisinopril [Zestril 10 mg (*)] 10 mg PO DAILY 03/09/17 [Last Taken Unknown] Multivitamins [Multivitamin (*)] 1 each PO DAILY 03/09/17 [Last Taken Unknown] Oxybutynin Chloride [Ditropan] 5 mg PO BID 03/09/17 [Last Taken Unknown] Polyethylene Glycol 3350 [Miralax 17 gm (*)] 17 gm PO DAILY PRN 03/09/17 [Last Taken Unknown] Risperidone 2 mg PO DAILY 03/09/17 [Last Taken Unknown] risperiDONE [Risperidone] 3 mg PO DAILY 03/09/17 [Last Taken Unknown] Acetaminophen [Tylenol 325mg (*)] 650 mg PO Q4HRS PRN #0 tab 03/19/17 [Last Taken Unknown] Enoxaparin [Lovenox 40 MG (*)] 40 mg SC DAILY syr 03/19/17 [Last Taken Unknown] Hydrocodone/APAP 5/325 [[place] 5/325 (*)] 1 - 2 tab PO Q4HRS PRN #0 tab 03/19/17 [Last Taken Unknown] Metoprolol Tartrate [Lopressor 25 mg (*)] 12.5 mg PO BID tab 03/19/17 [Last Taken Unknown] Sennosides/Docusate Sodium [Senokot-S] 1 - 2 tab PO BID tab 03/19/17 [Last Taken Unknown] oxyCODONE IR [Oxycodone Ir (*)] 5 mg PO Q4HRS PRN #0 tab 03/19/17 [Last Taken Unknown] Discharge Medications: Refer to the Discharge Home Medication list for PRN reason. PICC Care - Routine: N/A - Orders Services needed: Registered Nurse, Physical Therapy, Occupational Therapy Activity/Weight Bearing Restrictions: daily dressing changes to left lower extremity. elevate at rest. TDWB ONLY left lower ext. rom to ankle, knee as tolerated. f/u at two weeks [facility]. seek attn for increasing pain, drainage , s/s infection - Follow Up Care Current Providers and Referrals: Patient,NotPresent [Unknown] - As per Instructions
--- NOTE | 2017-03-19 23:08 | GDS ---
[f rep st] DISCHARGE SUMMARY DISCHARGE DIAGNOSES: 1. Acute tib-fib fracture. 2. Sepsis. 3. Suspected urinary tract infection. 4. Tachycardia. 5. Severe schizophrenia. 6. Acute hyponatremia. 7. Anemia. 8. Pain. 9. Acute leukocytosis. CONSULTATIONS: 1. Dr. Mantilla of Orthopedics. 2. Dr. Spear of Psychiatry. STUDIES AND PROCEDURES DONE: 1. Nuclear stress test. 2. Echocardiogram. 3. CT angio of the chest. 4. IM nailing of the tib-fib fracture. PHYSICAL EXAMINATION: GENERAL: The patient is alert. VITAL SIGNS: Afebrile at 37.3, pulse is 98, respiratory rate 16, blood pressure is 119/82. She is saturating 92% on room air. I have seen and evaluated the patient on the day of discharge. HOSPITAL COURSE: The patient is a 76-year-old female with severe schizophrenia, who presented to [facility] emergency room after being found down next to the edge of her bed. She was evaluated and diagnose d with: 1. Acute tib-fib fracture. During this hospitalization, surgical intervention was performed, and t he patient will remain on precautions and continue physical therapy and occupational therapy in the outpatient setting. 2. Sepsis. No sepsis was identified after further evaluation during this hospitalization. 3. Possible urinary tract infection. Again, the patient's urine culture did not grow anything. Ur inary tract infection was not diagnosed. 4. Tachycardia. The patient has been started on a beta-kandis secondary to intermittent tachycard ia. A nuclear stress test was done that was negative, as well as CT angio negative for pulmonary em boli. The etiology of the patient's tachycardia has not identified and is being treated with beta b locker. 5. Severe schizophrenia. It appears that she is at her baseline with regard to this condition. Ap preciate psychiatric medical management and evaluation. 6. Hyponatremia. This is secondary to hypovolemia and has resolved. 7. Anemia. The patient did require transfusion of 1 unit packed red blood cells during this hospit alization. Her anemia is stable at the time of the disposition. DISPOSITION: The patient will be discharged to [facility] for further rehabilitation and management. PENDING STUDIES: There are no pending studies. DISCHARGE MEDICATIONS: Please refer to the EMR form. She has multiple home medications that have b een continued throughout this hospitalization. She has also been initiated on Lopressor 12.5 mg b.i .d., as well as Lovenox. I reviewed the patient's disposition with the case technician. I spent greater than 35 minutes in the care, coordination, and management of this patient's discharge. FOLLOWUP: Will be with Dr. Mantilla the orthopedist, as well as her primary care physician. /[id number]/MODL
== END 2017-03-19 15:18 | DRG 493 ==
LOC: EDUNIT# → F1N 21:56 → F2N 22:47 → F3N 03-12 15:30
PROVIDERS: ADMIT Hospitalist; ATTEND Hospitalist
PROC: 0QSH06Z Reposition Left Tibia with Intramedullary Internal Fixation Device, Open Approach (ICD-10-PCS; principal; 2017-03-12 16:00)
PROC: 30233N1 Transfusion of Nonautologous Red Blood Cells into Peripheral Vein, Percutaneous Approach (ICD-10-PCS; 2017-03-15)
DX: S82.302A Unspecified fracture of lower end of left tibia, initial encounter for closed fracture (principal); F20.0 Paranoid schizophrenia; E87.1 Hypo-osmolality and hyponatremia; S82.832A Other fracture of upper and lower end of left fibula, initial encounter for closed fracture; R00.0 Tachycardia, unspecified; D64.9 Anemia, unspecified; I10 Essential (primary) hypertension; W19.XXXA Unspecified fall, initial encounter; Y92.013 Bedroom of single-family (private) house as the place of occurrence of the external cause
CPT/HCPCS: 97110-GP; 97116-GP; 97163-GP; 97167-GO; 97530-GO; 97530-GP; 97535-GO; C1713; C1769; G8978-GP-CN; G8979-GP-CK; G8987-GO-CN; G8988-GO-CM; G8989-GO-CM; J0690; J0696; J1100; J1170; J1335; J1650; J1885; J2250; J2704; J2785; J3010; P9016; Q9967

== ENCOUNTER 2017-04-01 23:28 | Emergency (ER) | payer OTHER, MEDICAID ==
[2017-04-01 23:38] VITALS: BP 140/69; PULSE 66; RESP 16; TEMP 98.2; O2SAT 95
[2017-04-02] MEDS ORDERED: OXYCODONE/APAP 5/325 TAB PO ONE (00:25)
--- NOTE | 2017-04-02 00:29 | EDPHY ---
H & P Stated Complaint: L tib/fib Fx ORIF on 03/13, continued pain and swelling Time Seen by Provider: 04/01/17 23:52 HPI/ROS: Chief Complaint: Left leg pain HPI: 76-year-old woman presenting from [facility] with complaints of leg pain. Patient sustained a fracture to her tibia and fibula 3 weeks ago. She is status post surgical repair by Dr. Mantilla. Patient states she has been having persistent pain in the left leg since her surgery. Last was given pain medicine at the [facility] at 4 o'clock this afternoon. She had an x-ray ordered this afternoon which showed the hardware in place but some question of whether there is actually healing going on. She was sent to the ER for further evaluation. Denies any new swelling. No chest pain or shortness of breath. No fevers or chills. Denies any further injuries. ROS: 10 point Review of Systems is negative except as noted in the HPI. PMH: Schizophrenia, left tib-fib fracture Social History: No smoking, no alcohol, no recreational drug use Family History: non-contributory Physical Exam: Gen: Awake, Alert, No Distress HEENT: Nose: no rhinorrhea Eyes: PERRLA, EOMI Mouth: Moist mucosa Neck: Supple, no JVD Chest: nontender, lungs clear to auscultation Heart: S1, S2 normal, no murmur Abd: Soft, non-tender, no guarding Back: no CVA tenderness, no midline tenderness Ext: no edema, she has ecchymosis over left leg consistent with old fracture and repair. Her incisions are clean dry and intact. There is no discharge. Her compartments are soft. She has 2+ DP and PT pulses. Capillary refills less than 3 seconds. Sensations intact in all dermatomes. She has some mild edema in her foot but none in the rest of her leg. It is not warm to the touch. There is no erythema. Skin: no rash Neuro: CN II-XII intact, Sensation grossly intact, Strength 5/5 in bilateral upper and lower extremities - Personal History Current Tetanus/Diphtheria Vaccine: Yes Tetanus Vaccine Date: 2012 - Medical/Surgical History Hx Asthma: No Hx Chronic Respiratory Disease: No Hx Diabetes: No Hx Cardiac Disease: No Hx Renal Disease: No Hx Cirrhosis: No Hx Alcoholism: No Hx HIV/AIDS: No Hx Splenectomy or Spleen Trauma: No Other PMH: PMH: left hip problems (refuses sx), paranoid schizophrenia, rheumatic heart diseasea,. PSH: hysterectomy, appy, LLE ORIF 2017 - Social History Smoking Status: Never smoked Constitutional: Initial Vital Signs Temperature (C) 36.8 C 04/01/17 23:35 Heart Rate 66 04/01/17 23:35 Respiratory Rate 16 04/01/17 23:35 Blood Pressure 140/69 H 04/01/17 23:35 O2 Sat (%) 95 04/01/17 23:35 O2 Delivery Mode Room Air Allergies/Adverse Reactions: lithium [[place]] Allergy (Verified 03/09/17 19:14) Sulfa (Sulfonamide Antibiotics) Allergy (Verified 03/09/17 19:14) Home Medications: Medication Instructions Recorded Albuterol Sulfate [Ventolin Hfa] 1 - 2 puffs IH Q6H PRN 03/09/17 Aspirin [Aspirin 325 mg (*)] 325 mg PO DAILY 03/09/17 Cholecalciferol Vit D3 [Vitamin D3 5,000 units PO DAILY 03/09/17 (*)] Diclofenac Potassium 50 mg PO BID PRN 03/09/17 Docusate Sodium [Colace 100 MG (*)] 100 mg PO BID 03/09/17 Donepezil HCl [Aricept 5 MG (*)] 5 mg PO DAILY 03/09/17 Hydrocortisone 2.5% 1 faby TP BID PRN 03/09/17 [Hydrocortisone 2.5% cream (*)] Lisinopril [Zestril 10 mg (*)] 10 mg PO DAILY 03/09/17 Multivitamins [Multivitamin (*)] 1 each PO DAILY 03/09/17 Oxybutynin Chloride [Ditropan] 5 mg PO BID 03/09/17 Polyethylene Glycol 3350 [Miralax 17 gm PO DAILY PRN 03/09/17 17 gm (*)] Risperidone 2 mg PO DAILY 03/09/17 risperiDONE [Risperidone] 3 mg PO DAILY 03/09/17 Acetaminophen [Tylenol 325mg (*)] 650 mg PO Q4HRS PRN #0 tab 03/19/17 Enoxaparin [Lovenox 40 MG (*)] 40 mg SC DAILY syr 03/19/17 Hydrocodone/APAP 5/325 [[place] 1 - 2 tab PO Q4HRS PRN #0 tab 03/19/17 5/325 (*)] Metoprolol Tartrate [Lopressor 25 12.5 mg PO BID tab 03/19/17 mg (*)] Sennosides/Docusate Sodium 1 - 2 tab PO BID tab 03/19/17 [Senokot-S] Lovenox 40 MG (*) 04/01/17 Oxycodone HCl 04/02/17 Medical Decision Making ED Course/Re-evaluation: I have reviewed the radiology report from the outside radiographs taken today. Hardware is in place and there is some question with healing. On examination here. She has some mild tenderness but there is no findings suggestive of acute displacement of the fracture. There is no signs suggestive of a compartment syndrome. There are no signs of infection at this time. There is no evidence of acute process now. I do not think she requires hospitalization at this time. She will be discharged back to [facility] with instructions to follow up with Dr. Mantilla in the next 1-2 days. She is afebrile part. Is otherwise well-appearing and in no distress. This has been discussed with the nurses at [facility]. They have agreed taken back and will arrange for follow-up with Orthopedics. The nursing also confirms that she has not gotten any analgesia since 4 o'clock this afternoon. We have reiterated to them how important is to continue with regular analgesia. Departure - Departure Disposition: Home, Routine, Self-Care Clinical Impression: Leg pain Condition: Good Instructions: Leg Pain (ED) Additional Instructions: Follow up with Dr. Mantilla, call today for follow-up appointment. Please make sure to provide the patient with pain medicine every 4 hours as needed. Return to the emergency department for increasing pain, fevers, chills, chest pain, shortness of breath, or any other concerns. Referrals: Alli Reed MD [Primary Care Provider] - As per Instructions Clive Mantilla MD [Medical Doctor] - As per Instructions
== END 2017-04-02 01:12 | disposition home or self-care (01) ==
LOC: EDUNIT#
DX: M79.605 Pain in left leg (principal); Z79.82 Long term (current) use of aspirin

== ENCOUNTER 2017-07-09 16:43 | Emergency (ER) | payer OTHER, MEDICAID ==
--- NOTE | 2017-07-09 16:53 | EDPHY ---
H & P Time Seen by Provider: 07/09/17 16:43 HPI/ROS: CHIEF COMPLAINT: Left lower extremity pain HISTORY OF PRESENT ILLNESS: Patient had tib-fib fracture and was admitted to our hospital and discharged on March 19, discharge summary personally reviewed. She tells me that she has pain in her left leg and hip for 3 months and it is worse today. She was sent into us because of an x-ray which was performed today. The radiology impression is "severe chronic changes in the left hip joint "but the intermediate notes that she is sent for "diagnosis of dislocated L hip per portable x-ray." Patient says her pain is continuous and stable. It is in the hip knee and lower leg. It is not associated with chest pain or shortness of breath. She has been bed-bound for at least the last 3 months and does not typically walk. Her medications include oxycodone 5 mg twice daily and acetaminophen. She is also on diclofenac and risperidone. REVIEW OF SYSTEMS: Eye: no change in vision ENT: no sore throat Cardiac: no chest pain or syncope Pulmonary: no cough or SOB Abdomen: no vomiting, diarrhea, abdominal pain Musculoskeletal: no back pain Skin: no rash Neuro: no headache Constitutional: no fever : no urinary symptoms A comprehensive 10 point review of systems is otherwise negative aside from elements mentioned in the history of present illness. PAST MEDICAL HISTORY: Includes tib-fib fracture, UTI, severe schizophrenia. Hypertension Social history: Current resident at [facility] General Appearance: Alert and conversant, cooperative. Eyes: No scleral icterus. ENT, Mouth: Normal mucous membranes. Respiratory: Normal respiratory effort, breath sounds equal, lungs are clear to auscultation. Cardiovascular: Regular rate and rhythm. Gastrointestinal: Abdomen is soft and non tender. Neurological: Alert and oriented x3. Normally conversant. Face symmetric, normal movement and sensation in all extremities. Skin: Warm and dry, no rashes. Musculoskeletal: Patient has left knee and hip flexion contractures. She does not have any point bony tenderness or deformity. Normal motor and sensory in the left foot and normal dorsalis pedis pulse in that foot as well. Psychiatric: Not agitated. Emergency Department course/MDM: Plan for left hip knee and tib-fib x-rays, ultrasound of the left leg, her usual pain medication. Discharged back to [facility] if negative. 1731: Normal left leg ultrasound per [place], no DVT. X-ray left hip personally reviewed, probable only osteoarthritis with chronic changes, x-ray report from radiologist reviewed, CT ordered. 1811: CT negative for fracture or dislocation, all old. Smoking Status: Never smoked Constitutional: Initial Vital Signs Temperature (C) 36.5 C 07/09/17 16:59 Heart Rate 81 07/09/17 16:59 Respiratory Rate 18 07/09/17 16:59 Blood Pressure 149/78 H 07/09/17 16:59 O2 Sat (%) 96 07/09/17 16:59 O2 Delivery Mode Room Air Allergies/Adverse Reactions: lithium [[place]] Allergy (Verified 03/09/17 19:14) Sulfa (Sulfonamide Antibiotics) Allergy (Verified 03/09/17 19:14) Home Medications: Medication Instructions Recorded Albuterol Sulfate [Ventolin Hfa] 1 - 2 puffs IH Q6H PRN 03/09/17 Aspirin [Aspirin 325 mg (*)] 325 mg PO DAILY 03/09/17 Cholecalciferol Vit D3 [Vitamin D3 5,000 units PO DAILY 03/09/17 (*)] Diclofenac Potassium 50 mg PO BID PRN 03/09/17 Docusate Sodium [Colace 100 MG (*)] 100 mg PO BID 03/09/17 Donepezil HCl [Aricept 5 MG (*)] 5 mg PO DAILY 03/09/17 Hydrocortisone 2.5% 1 faby TP BID PRN 03/09/17 [Hydrocortisone 2.5% cream (*)] Lisinopril [Zestril 10 mg (*)] 10 mg PO DAILY 03/09/17 Multivitamins [Multivitamin (*)] 1 each PO DAILY 03/09/17 Oxybutynin Chloride [Ditropan] 5 mg PO BID 03/09/17 Polyethylene Glycol 3350 [Miralax 17 gm PO DAILY PRN 03/09/17 17 gm (*)] Risperidone 2 mg PO DAILY 03/09/17 risperiDONE [Risperidone] 3 mg PO DAILY 03/09/17 Acetaminophen [Tylenol 325mg (*)] 650 mg PO Q4HRS PRN #0 tab 03/19/17 Enoxaparin [Lovenox 40 MG (*)] 40 mg SC DAILY syr 03/19/17 Hydrocodone/APAP 5/325 [[place] 1 - 2 tab PO Q4HRS PRN #0 tab 03/19/17 5/325 (*)] Metoprolol Tartrate [Lopressor 25 12.5 mg PO BID tab 03/19/17 mg (*)] Sennosides/Docusate Sodium 1 - 2 tab PO BID tab 03/19/17 [Senokot-S] Lovenox 40 MG (*) 04/01/17 Oxycodone HCl 04/02/17 Medical Decision Making - Diagnostics Imaging Results: Imaging Impressions Extremity Venous Study 07/09/17 16:52 Impression: No deep venous thrombosis left leg. Results called to Dr. Goss at 5:30 PM. 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 No definite acute fracture noted. Comment: If there is significant clinical concern for occult left hip fracture, consider noncontrast CT. Knee X-Ray 07/09/17 16:52 Impression: Negative for acute abnormality. Extremity CT 07/09/17 17:32 Impression: 1. 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 No acute fracture identified. Results called to Dr. Tariq Goss at 6:10 PM. - Data Points Medications Given: Discontinued Medications Oxycodone/Acetaminophen (Percocet 5/325) 1 tab PO EDNOW ONE Stop: 07/09/17 16:58 Last Admin: 07/09/17 17:26 Dose: 1 tab Departure - Departure Disposition: Home, Routine, Self-Care Clinical Impression: Leg pain, left Hip pain Qualifiers: Laterality: left Qualified Code(s): M25.552 - Pain in left hip Condition: Good Instructions: Leg Pain (ED) Referrals: Alli Reed MD [Primary Care Provider] - As per Instructions
[2017-07-09] MEDS ORDERED: OXYCODONE/APAP 5/325 TAB PO ONE ×2 (16:57)
[2017-07-09 17:01] VITALS: RESP 18
[2017-07-09 19:36] VITALS: BP 132/65; PULSE 84; TEMP 97.9; O2SAT 98
== END 2017-07-09 19:24 | disposition home or self-care (01) ==
LOC: EDUNIT#
DX: M79.605 Pain in left leg (principal); M25.552 Pain in left hip; I10 Essential (primary) hypertension; Z79.82 Long term (current) use of aspirin

== ENCOUNTER → 2017-08-27 | Outpatient (CLI) | payer OTHER, MEDICAID | LOC: BMCIMAGING 09:31 | PROVIDERS: ATTEND Orthopaedic Surgery | DX: Z87.81 Personal history of (healed) traumatic fracture (principal) ==